=== PATIENT | female | born 1955 | race Caucasian/White ===

== ENCOUNTER 2017-06-28 08:03 | Day surgery (SDC) | payer OTHER ==
[~2017-06-28 08:03] MED LIST: Lactated Ringers 1,000 ML IV SCH; Lidocaine 1%/Sod Bicarbonate in NS 8.4% 1 ML Syringe PRN; Sodium Chloride 0.9% 10 ML Syringe FLUSH PRN
[2017-06-28] MEDS ORDERED: Albuterol 0.083% 2.5 MG/3 ML Neb Soln NEB ONE (09:01)
--- NOTE | 2017-06-28 09:02 | PCM.PREANE ---
Preanesthetic Assessment - Anesthesia/Transfusion/Family Hx Anesthesia History: Prior Anesthesia Without Reaction Family History of Anesthesia Reaction: No Transfusion History: No Prior Transfusion(s) - Review of Systems General: No Symptoms Pulmonary: No Symptoms Cardiovascular: No Symptoms Gastrointestinal: No Symptoms Neurological: No Symptoms - Physical Assessment NPO Status Date: 06/27/17 (pill with sip of water this am) NPO Status Time: 17:30 O2 Sat by Pulse Oximetry: 97 Respiratory Rate: 20 Vital Signs: Last Vital Signs Temp 99.0 F 06/28/17 08:10 Pulse 117 H 06/28/17 08:10 Resp 20 06/28/17 08:10 BP 137/94 H 06/28/17 08:10 Pulse Ox 97 06/28/17 08:10 Height: 5 ft 9 in Weight: 67.585 kg ASA Class: 2 Mental Status: Alert & Oriented x3 Airway Class: Mallampati = 1 Dentition: Reports: Normal Dentition Thyro-Mental Finger Breadths: 3 Mouth Opening Finger Breadths: 3 ROM/Head Extension: Full Lungs: Clear to Auscultation, Normal Respiratory Effort Cardiovascular: Regular Rate, Regular Rhythm - Allergies Allergies/Adverse Reactions: Allergies Allergy/AdvReac Type Severity Reaction Status Date / Time nortriptyline Allergy Cannot Verified 06/27/17 13:46 Remember Sulfa (Sulfonamide Allergy Cannot Verified 06/27/17 13:46 Antibiotics) Remember - Blood Blood Available: No - Acknowledgements Anesthesia Type Planned: General Anesthesia Pt an Appropriate Candidate for the Planned Anesthesia: Yes Alternatives and Risks of Anesthesia Discussed w Pt/Guardian: Yes Pt/Guardian Understands and Agrees with Anesthesia Plan: Yes PreAnesthesia Questionnaire HEENT History: Reports: Sinusitis Cardiovascular History: Reports: Arrhythmia, High Cholesterol, Hypertension ( denies), Other (See Below) Other Cardiovascular History: SVT Respiratory History: Reports: COPD Gastrointestinal History: Reports: GERD, Hemorrhoids, Other (See Below) Other Gastrointestinal History: perianal cyst Genitourinary History: Reports: Urinary Incontinence OBIEE OBIA 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: Reports: Other (See Below) Other OB/BYN History: bladder sling, atrohic vaginitis, stress urinary incontinence, urgency, cystocle and rectocele, cystocele and rectocele repair Musculoskeletal History: Reports: Back Pain, Chronic, Other (See Below) Other Musculoskeletal History: right foot mass Neurological History: Reports: None Psychiatric History: Reports: Anxiety Endocrine/Metabolic History: Reports: None Hematologic History: Reports: Anemia, Iron Deficiency, Other (See Below) Other Hematologic History: leukocytosis Immunologic History: Reports: None Oncologic (Cancer) History: Reports: None Dermatologic History: Reports: Other (See Below) Other Dermatologic History: actinic keratosis, right foot abcess - Past Surgical History HEENT Surgical History: Reports: None Cardiovascular Surgical History: Reports: None Respiratory Surgical History: Reports: None GI Surgical History: Reports: Appendectomy, Cholecystectomy, Colonoscopy Female Surgical History: Reports: Hysterectomy Endocrine Surgical History: Reports: None Neurological Surgical History: Reports: None Musculoskeletal Surgical History: Reports: Other (See Below) Other Musculoskeletal Surgeries/Procedures:: L5S1 fusion, right great toe surgery Oncologic Surgical History: Reports: None - SUBSTANCE USE Smoking Status *Q: Former Smoker (quit 2010) Second Hand Smoke Exposure: Yes Days Per Week of Alcohol Use: 0 Recreational Drug Use History: No - HOME MEDS Home Medications: Home Meds Albuterol [Proair HFA] 2 puff INH Q12H PRN 06/27/17 [History] ClonazePAM [KlonoPIN] 0.5 mg PO BID PRN 06/27/17 [History] Cyclobenzaprine [Flexeril] 10 mg PO BID PRN 06/27/17 [History] Diltiazem HCl [Diltiazem 24Hr ER] 240 mg PO DAILY 06/27/17 [History] Esomeprazole [NexIUM] 40 mg PO BID 06/27/17 [History] Estrogens, Conjugated [Premarin] 0.625 mg PO DAILY 06/27/17 [History] Ezetimibe [Ezetimibe] 10 mg PO DAILY 06/27/17 [History] Fluticasone Propionate [Flonase] 1 spray NASBOTH DAILY 06/27/17 [History] Fluticasone/Salmeterol [Advair 500-50] 1 puff INH BID 06/27/17 [History] Gabapentin [Neurontin] 300 mg PO BEDTIME 06/27/17 [History] Meloxicam [Meloxicam] 15 mg PO DAILY 06/27/17 [History] Montelukast [Singulair] 10 mg PO DAILY 06/27/17 [History] Rosuvastatin Calcium [Rosuvastatin Calcium] 10 mg PO DAILY 06/27/17 [History] Tiotropium [Spiriva Handihaler] 1 puff INH DAILY 06/27/17 [History] Ubidecarenone [Coq-10] 100 mg PO DAILY 06/27/17 [History] - CURRENT (IN HOUSE) MEDS Current Meds: Current Medications Lactated Ringer's (Ringers, Lactated) 1,000 mls @ 125 mls/hr IV ASDIRECTED STANLEY Stop: 06/28/17 23:00 Last Admin: 06/28/17 08:25 Dose: 125 mls/hr Lidocaine/Sodium Bicarbonate (Buffered Lidocaine 1% In Ns 8.4%) 0.25 ml .XX ONETIME PRN PRN Reason: Prior to IV Start Stop: 06/28/17 18:00 Last Admin: 06/28/17 08:24 Dose: 0.25 ml Sodium Chloride (Saline Flush) 10 ml FLUSH ASDIRECTED PRN PRN Reason: Keep Vein Open Stop: 06/28/17 18:00
[2017-06-28] MEDS ORDERED: Lidocaine 1% with EPINEPHrine 1:100,000 20 ML MDV ONE (09:07)
[2017-06-28] MEDS ORDERED: Sodium Chloride 0.9% 50 ML SDV ONE (09:07)
[2017-06-28] MEDS ORDERED: fentaNYL 250 MCG/5 ML SDV ONE (09:32)
[2017-06-28] MEDS ORDERED: Propofol 200 MG/20 ML SDV ONE (09:32)
[2017-06-28] MEDS ORDERED: Lidocaine 1% 4 ML ONE (09:32)
[2017-06-28] MEDS ORDERED: Ondansetron 4 MG/2 ML SDV ONE (09:32)
[2017-06-28] MEDS ORDERED: Midazolam 1 MG/ML 2 ML SDV ONE (09:32)
[2017-06-28] MEDS ORDERED: Rocuronium 50 MG/5 ML Vial ONE (09:42)
[2017-06-28] MEDS ORDERED: ceFAZolin 1 GM Vial ONE (09:47)
[2017-06-28] MEDS ORDERED: HYDROmorphone 1 MG/ML Syringe ONE (10:18)
[2017-06-28] MEDS ORDERED: fentaNYL 100 MCG/2 ML SDV IVPUSH PRN (10:20)
[2017-06-28] MEDS ORDERED: HYDROmorphone 0.5 MG/0.5 ML Syringe IVPUSH PRN (10:20)
[2017-06-28] MEDS ORDERED: Haloperidol Lactate 5 MG/ML SDV IVPUSH PRN (10:20)
[2017-06-28] MEDS ORDERED: Dexamethasone 4 MG/ML 5 ML MDV ONE (10:42)
[2017-06-28] MEDS ORDERED: Ketorolac 30 MG/ML SDV ONE (10:42)
[2017-06-28] MEDS ORDERED: Lactated Ringers 1,000 ML ONE (10:42)
[2017-06-28] MEDS ORDERED: Neostigmine Methylsulfate 1 MG/ML 5 ML Syringe ONE (10:44)
--- NOTE | 2017-06-28 10:47 | PCM.OPNOTE ---
- General Post-Op/Procedure Note Date of Surgery/Procedure: 06/28/17 Operative Procedure(s): Anterior colporrhaphy 37044 Pre Op Diagnosis: Cystocele midline, stress urinary incontinence female Post-Op Diagnosis: Same Anesthesia Technique: General ET Tube Primary Surgeon: Azar Aviles Secondary Surgeon: Paul Aggarwal Anesthesia Provider: Phyllis Hahn Ear Muff Assembler: Rishi Dumont (PAS) Reason Ear Muff Assembler Was Necessary: Retraction, decrease comorbidity and co-mortality, patient safety Role of Ear Muff Assembler: Retraction, decrease comorbidity and co-mortality, patient safety Fluid Replacement, Intraop: 1,000 Output, Urine Amount: 275 EBL in mLs: 10 Drain/Tube Comments:: None Complications: None Condition: Good Free Text/Narrative:: Patient was transported to operating room #2 and placed under general anesthesia with endotracheal intubation. SCDs in place and functioning prior surgery. Ancef 2 g given intravenously prior surgery. Patient prepared and draped in a sterile fashion. Timeout performed confirming name, date of and procedure is anterior possible posterior colporrhaphy (only anterior colporrhaphy required) the apex of vagina grasped with 2 Allis clamps and additional Allis clamps placed at the cystoscopy urethral angle to allow orientation during surgery and provide additional retraction. A T-incision was made at the apex of the vagina and injecting 7 mL of 0.5% lidocaine with epinephrine beneath the vaginal mucosa. Undermining with Metzenbaum scissors and incising to the cystoscopy urethral angle the vaginal mucosa was grasped bilaterally with Allis clamps and applying traction dissection was performed to reduce the cystocele. Plication sutures of 0 Monocryl were placed beginning at the urethrovesical angle and one distally and proceeding posteriorly the plication sutures of 0 Monocryl were placed and reducing the cystocele. The redundant vaginal mucosa was excised. The vaginal causes was approximated with 0 Monocryl running suture. Examination under anesthesia had revealed good support posteriorly and no posterior repair was required. Sponge needle pack asthma sharp count correct 2 120 mL of saline instilled into the bladder to assist in post operative voiding patient transported postanesthesia care unit in satisfactory condition. I talked with her concerning the surgery and all questions answered voiced satisfaction.
--- NOTE | 2017-06-28 10:49 | PCM.POSTAN ---
POST ANESTHESIA ASSESSMENT - MENTAL STATUS Mental Status: Alert, Oriented - VITAL SIGNS Pulse Rate: 124 SaO2: 98 Resp Rate: 15 Blood Pressure: 137/73 Temperature: 37.3 C - RESPIRATORY Respiratory Status: Respiratory Rate WNL, Airway Patent, O2 Saturation Stable, Supplemental Oxygen - CARDIOVASCULAR CV Status: Pulse Rate WNL, Blood Pressure Stable - GASTROINTESTINAL GI Status: No Symptoms - PAIN Pain Score: 0 - POST OP HYDRATION Hydration Status: Adequate & Stable
[2017-06-28] MEDS ORDERED: Acetaminophen/oxyCODONE 325-5 MG Tab PO ONE (14:06)
[2017-06-28 16:55] VITALS: BP 142/78
--- NOTE | 2017-06-29 11:18 | PCM48HPAN ---
Post Anesthesia Note - EVALUATION WITHIN 48HRS OF ANESTHETIC Vital Signs in Normal Range: Yes Patient Participated in Evaluation: Yes Respiratory Function Stable: Yes Airway Patent: Yes Cardiovascular Function Stable: Yes Hydration Status Stable: Yes Pain Control Satisfactory: Yes Nausea and Vomiting Control Satisfactory: Yes Mental Status Recovered: Yes
== END 2017-06-28 16:20 | disposition home or self-care (01) ==
LOC: JD.SDS 08:03 → MERGE 08:03 → JD.SDS 16:20
PROVIDERS: ATTEND Obstetrics & Gynecology
DX: N81.11 Cystocele, midline (principal); N39.3 Stress incontinence (female) (male); L57.0 Actinic keratosis; F41.9 Anxiety disorder, unspecified; N95.2 Postmenopausal atrophic vaginitis; M89.29 Other disorders of bone development and growth, multiple sites; M54.10 Radiculopathy, site unspecified; I10 Essential (primary) hypertension; J44.9 Chronic obstructive pulmonary disease, unspecified; J30.89 Other allergic rhinitis; K21.9 Gastro-esophageal reflux disease without esophagitis; E78.5 Hyperlipidemia, unspecified; D50.9 Iron deficiency anemia, unspecified; G25.81 Restless legs syndrome; J32.9 Chronic sinusitis, unspecified; R39.15 Urgency of urination; Z88.8 Allergy status to other drugs, medicaments and biological substances; Z88.2 Allergy status to sulfonamides; Z79.51 Long term (current) use of inhaled steroids; Z79.899 Other long term (current) drug therapy; Z90.49 Acquired absence of other specified parts of digestive tract; Z90.710 Acquired absence of both cervix and uterus; Z98.890 Other specified postprocedural states
CPT/HCPCS: 36415; 57240; 86850; 86900; 86901; 93005; 94640; A9270; J0690; J1100; J1170; J1885; J2250; J2405; J2710; J3010; J7120; 00942; J2704

== ENCOUNTER 2017-09-07 11:08 | Day surgery (SDC) | payer OTHER ==
[~2017-09-07 11:08] MED LIST changes: +Lidocaine 1%/Sod Bicarbonate in NS 8.4% 1 ML Syringe IDERM PRN; -Lidocaine 1%/Sod Bicarbonate in NS 8.4% 1 ML Syringe PRN
[2017-09-07] MEDS ORDERED: Propofol 200 MG/20 ML SDV ONE (12:31)
[2017-09-07] MEDS ORDERED: Midazolam 1 MG/ML 2 ML SDV ONE (12:31)
[2017-09-07] MEDS ORDERED: fentaNYL 100 MCG/2 ML SDV ONE ×2 (12:31→13:17)
[2017-09-07] MEDS ORDERED: Lidocaine 1% 4 ML ONE (12:33)
--- NOTE | 2017-09-07 12:44 | PCM.PREANE ---
Preanesthetic Assessment - Procedure Proposed Procedure: Anoscopy with rubber band ligation - Anesthesia/Transfusion/Family Hx Anesthesia History: Prior Anesthesia Without Reaction Family History of Anesthesia Reaction: No Transfusion History: No Prior Transfusion(s) - Review of Systems General: No Symptoms Pulmonary: Other (COPD) Cardiovascular: Other (SVT, HTN ) Gastrointestinal: Other (GERD ) Neurological: No Symptoms Other: Reports: Easy Bruising, Anxiety - Physical Assessment NPO Status Date: 09/06/17 NPO Status Time: 17:30 Pulse: 103 O2 Sat by Pulse Oximetry: 97 Respiratory Rate: 20 Blood Pressure: 143/73 Temperature: 36.8 C Height: 1.75 m Weight: 67.132 kg ASA Class: 2 Mental Status: Alert & Oriented x3 Airway Class: Mallampati = 3 Dentition: Reports: Normal Dentition Thyro-Mental Finger Breadths: 3 Mouth Opening Finger Breadths: 3 ROM/Head Extension: Full Lungs: Clear to Auscultation, Normal Respiratory Effort Cardiovascular: Regular Rate, Regular Rhythm - Allergies Allergies/Adverse Reactions: Allergies Allergy/AdvReac Type Severity Reaction Status Date / Time nortriptyline Allergy Rash Verified 09/06/17 13:46 Sulfa (Sulfonamide Allergy Cannot Verified 09/06/17 13:46 Antibiotics) Remember sulfanilamide Allergy Rash Verified 09/06/17 13:46 - Blood Blood Available: No Product(s) Available: None - Anesthesia Plan Pre-Op Medication Ordered: None - Acknowledgements Anesthesia Type Planned: MAC Pt an Appropriate Candidate for the Planned Anesthesia: Yes Alternatives and Risks of Anesthesia Discussed w Pt/Guardian: Yes Pt/Guardian Understands and Agrees with Anesthesia Plan: Yes PreAnesthesia Questionnaire HEENT History: Reports: Sinusitis Other HEENT History: reading glasses, chalazion L eye Cardiovascular History: Reports: Arrhythmia, High Cholesterol, Hypertension, Other (See Below) Other Cardiovascular History: SVT Respiratory History: Reports: COPD, Other (See Below) Other Respiratory History: emphysema Gastrointestinal History: Reports: Chronic Constipation, GERD, Hemorrhoids, Other (See Below) Other Gastrointestinal History: perianal cyst Genitourinary History: Reports: Other (See Below), Urinary Incontinence Other Genitourinary History: stress urinary incontinence, L kidney lesion INSPECTOR REPAIRER History: Reports: Other (See Below) Other OB/BYN History: bladder sling, atrohic vaginitis, stress urinary incontinence, urgency, cystocle and rectocele, cystocele and rectocele repair Musculoskeletal History: Reports: Back Pain, Chronic, Gout, Other (See Below) Other Musculoskeletal History: right foot mass Neurological History: Reports: None Psychiatric History: Reports: Anxiety Endocrine/Metabolic History: Reports: None Hematologic History: Reports: Anemia, Iron Deficiency, Other (See Below) Other Hematologic History: leukocytosis Immunologic History: Reports: None Oncologic (Cancer) History: Reports: None, Other (See Below) Other Oncologic History: pre-cancer hyperplasia of bilateral breasts Dermatologic History: Reports: Other (See Below) Other Dermatologic History: actinic keratosis, right foot abcess - Past Surgical History HEENT Surgical History: Reports: Cataract Surgery, Tonsillectomy Cardiovascular Surgical History: Reports: None Respiratory Surgical History: Reports: None GI Surgical History: Reports: Appendectomy, Cholecystectomy, Colonoscopy, Other (See Below) Other GI Surgeries/Procedures: candidiasis of esophogus, tubular adenoma of colon, rectal bleeding Female Surgical History: Reports: Hysterectomy Male Surgical History: Reports: None Endocrine Surgical History: Reports: None Neurological Surgical History: Reports: None Musculoskeletal Surgical History: Reports: Other (See Below) Other Musculoskeletal Surgeries/Procedures:: L5S1 fusion, right great toe surgery Oncologic Surgical History: Reports: Biopsy of Breast, None - SUBSTANCE USE Smoking Status *Q: Former Smoker Tobacco Use Within Last Twelve Months: Cigarettes Second Hand Smoke Exposure: Yes Days Per Week of Alcohol Use: 0 Recreational Drug Use History: No - HOME MEDS Home Medications: Home Meds ClonazePAM [KlonoPIN] 0.5 mg PO TID PRN 01/25/15 [History] Diltiazem HCl [Diltiazem 24Hr ER] 240 mg PO DAILY 01/25/15 [History] Esomeprazole [NexIUM] 40 mg PO BID 01/25/15 [History] Estrogens, Conjugated [Premarin] 0.625 mg PO DAILY 01/25/15 [History] Montelukast [Singulair] 10 mg PO BEDTIME 01/25/15 [History] Rosuvastatin [Crestor] 10 mg PO BEDTIME 01/25/15 [History] Ubidecarenone [Coq-10] 300 mg PO BEDTIME 04/22/15 [History] Ferrous Sulfate [Iron] 325 mg PO DAILY 09/26/15 [History] Mirabegron [Myrbetriq] 25 mg PO DAILY 09/26/15 [History] Albuterol [Proair HFA] 2 puff INH Q12H PRN 06/27/17 [History] Ezetimibe 10 mg PO DAILY 06/27/17 [History] Fluticasone Propionate [Flonase] 1 spray NASBOTH DAILY 06/27/17 [History] Fluticasone/Salmeterol [Advair 500-50] 1 puff INH BID 06/27/17 [History] Gabapentin [Neurontin] 300 mg PO BEDTIME 06/27/17 [History] Meloxicam 15 mg PO DAILY 06/27/17 [History] Tiotropium [Spiriva Handihaler] 1 puff INH DAILY 06/27/17 [History] Cyclobenzaprine [Flexeril] 10 mg PO Q8H PRN 09/06/17 [History] - CURRENT (IN HOUSE) MEDS Current Meds: Current Medications Lactated Ringer's (Ringers, Lactated) 1,000 mls @ 125 mls/hr IV ASDIRECTED STANLEY Stop: 09/07/17 23:00 Last Admin: 09/07/17 12:25 Dose: 125 mls/hr Lidocaine/Sodium Bicarbonate (Buffered Lidocaine 1% In Ns 8.4%) 0.25 ml IDERM ONETIME PRN PRN Reason: Prior to IV Start Stop: 09/07/17 18:00 Sodium Chloride (Saline Flush) 10 ml FLUSH ASDIRECTED PRN PRN Reason: Keep Vein Open Stop: 09/07/17 18:00 Discontinued Medications Fentanyl (Sublimaze) Confirm Administered Dose 100 mcg .ROUTE .STK-MED ONE Stop: 09/07/17 12:32 Lidocaine HCl (Xylocaine-Mpf 1%) Confirm Administered Dose 4 mls @ as directed .ROUTE .STK-MED ONE Stop: 09/07/17 12:34 Midazolam HCl (Versed 1 Mg/Ml) Confirm Administered Dose 2 mg .ROUTE .STK-MED ONE Stop: 09/07/17 12:32 Propofol (Diprivan 20 Ml) Confirm Administered Dose 200 mg .ROUTE .STK-MED ONE Stop: 09/07/17 12:32
--- NOTE | 2017-09-07 13:24 | PCM.OPNOTE ---
- General Post-Op/Procedure Note Date of Surgery/Procedure: 09/07/17 Operative Procedure(s): 1. Anoscopy. 2. 3 column internal hemorrhoid rubber band ligation using the short shot Findings: Prominent 3 column internal hemorrhoids Pre Op Diagnosis: Bleeding internal hemorrhoids grade 2 Post-Op Diagnosis: Same Anesthesia Technique: MAC, Moderate Sedation Primary Surgeon: Gera Perdue Pathology: None EBL in mLs: 0 Complications: None Condition: Good Free Text/Narrative:: After adequate IV sedation and analgesia was obtained with monitoring the patient was placed in the prone check position with her buttocks taped. Perianal inspection revealed a slightly prolapsing internal hemorrhoids. Digital rectal examination was unremarkable for mass lesions. Anoscopy revealed prominent left lateral right anterior and right posterior columns. The short shot was then applied above the anoderm within each column 3. Patient tolerated the procedure well.
[2017-09-07] MEDS ORDERED: fentaNYL 100 MCG/2 ML SDV IVPUSH PRN (13:26)
[2017-09-07] MEDS ORDERED: Ketorolac 30 MG/ML SDV IVPUSH ONE (13:26)
[2017-09-07 15:04] VITALS: BP 135/70
== END 2017-09-07 14:05 | disposition home or self-care (01) ==
LOC: JD.SDS 11:08
PROVIDERS: ATTEND Surgery
DX: K64.1 Second degree hemorrhoids (principal); F41.9 Anxiety disorder, unspecified; I10 Essential (primary) hypertension; J44.9 Chronic obstructive pulmonary disease, unspecified; E78.5 Hyperlipidemia, unspecified; K21.9 Gastro-esophageal reflux disease without esophagitis; J30.89 Other allergic rhinitis; Z88.2 Allergy status to sulfonamides; Z88.8 Allergy status to other drugs, medicaments and biological substances; Z79.899 Other long term (current) drug therapy; Z87.891 Personal history of nicotine dependence
CPT/HCPCS: 46221; J1885; J2250; J3010; J7120; 00400; J2001; J2704

== ENCOUNTER 2018-10-02 14:54 | Emergency (ER) | payer OTHER ==
--- NOTE | 2018-10-02 15:42 | CR ---
Chest: Two views of the chest were obtained. Comparison: Previous chest x-ray of 03/15/18. Small bilateral pleural effusions are seen. Heart size at the upper limits of normal. Pulmonary vessels are felt to be slightly congested. Bony structures are unremarkable. Electrostimulating device seen within the thoracic spine. Impression: 1. Findings suspicious for mild CHF. Other incidental findings. Diagnostic code #3
[2018-10-02] MEDS ORDERED: Sodium Chloride/Potassium Chloride Tab PO STA (16:04)
[2018-10-02] MEDS ORDERED: Sodium Chloride 3% 500 ML IV SCH (16:45)
--- NOTE | 2018-10-02 17:10 | EDM.PDOC ---
ED HPI GENERAL MEDICAL PROBLEM - General Chief Complaint: Cardiovascular Problem Stated Complaint: SOB/HIGH BP Time Seen by Provider: 10/02/18 15:00 Source of Information: Reports: Patient History Limitations: Reports: No Limitations - History of Present Illness INITIAL COMMENTS - FREE TEXT/NARRATIVE: 63y/o female presents to ER with cc SOB. She reports she has been SOB for the past 4 months. She has seen her PCP and is awaiting a appointment with [facility]. She reports she has had increased SOB over the past 3 days. She has gained 9 pounds in 9 days. She reports her sodium level has been low 128, and she had a 24 hour urine done recently. She denies fever or chills, chest pain or back pain. She reports she can't bend over without becoming more SOB. She states she feels her abdomen is swollen. She denies diarrhea or constipation. She does admit to having a abnormal colonoscopy in 2014 and hasn' t followed up yet. She does have a history of A-Fib and it is well controlled with Metoprolol. She currently is in no distress and her saturation is 98% on room air. Onset Date: 09/29/18 Onset Time: 12:00 Duration: Getting Worse Location: Reports: Chest, Abdomen Severity: Mild Improves with: Reports: None Worsens with: Reports: Breathing Associated Symptoms: Reports: Shortness of Breath. Denies: Chest Pain, Cough, Diaphoresis, Fever/Chills, Nausea/Vomiting, Weakness - Related Data Allergies Allergy/AdvReac Type Severity Reaction Status Date / Time nortriptyline Allergy Rash Verified 10/02/18 15:02 Sulfa (Sulfonamide Allergy Cannot Verified 10/02/18 15:02 Antibiotics) Remember sulfanilamide Allergy Rash Verified 10/02/18 15:02 Home Meds: Home Meds Esomeprazole [NexIUM] 40 mg PO BID 01/25/15 [History] Estrogens, Conjugated [Premarin] 0.625 mg PO DAILY 01/25/15 [History] Montelukast [Singulair] 10 mg PO BEDTIME 01/25/15 [History] Rosuvastatin [Crestor] 10 mg PO BEDTIME 01/25/15 [History] Ubidecarenone [Coq-10] 300 mg PO BEDTIME 04/22/15 [History] Ferrous Sulfate [Iron] 325 mg PO DAILY 09/26/15 [History] Albuterol [Proair HFA] 2 puff INH Q12H PRN 06/27/17 [History] Ezetimibe 10 mg PO DAILY 06/27/17 [History] Fluticasone Propionate [Flonase] 1 spray NASBOTH DAILY 06/27/17 [History] Fluticasone/Salmeterol [Advair 500-50] 1 puff INH BID 06/27/17 [History] Gabapentin [Neurontin] 300 mg PO BID 06/27/17 [History] Tiotropium [Spiriva Handihaler] 1 puff INH DAILY 06/27/17 [History] Losartan [Cozaar] 50 mg PO DAILY 10/02/18 [History] Metoprolol Succinate [Toprol XL 100mg] 100 mg PO BID 10/02/18 [History] Rivaroxaban [Xarelto] 20 mg PO 10/02/18 [History] Past Medical History HEENT History: Reports: Sinusitis Other HEENT History: reading glasses, chalazion L eye Cardiovascular History: Reports: Arrhythmia, High Cholesterol, Hypertension, Other (See Below) Other Cardiovascular History: SVT Respiratory History: Reports: COPD, Other (See Below) Other Respiratory History: emphysema Gastrointestinal History: Reports: Chronic Constipation, GERD, Hemorrhoids, Other (See Below) Other Gastrointestinal History: perianal cyst Genitourinary History: Reports: Other (See Below), Urinary Incontinence Other Genitourinary History: stress urinary incontinence, L kidney lesion ELECTRONIC TECH History: Reports: Other (See Below) Other ELECTRONIC TECH History: bladder sling, atrohic vaginitis, stress urinary incontinence, urgency, cystocle and rectocele, cystocele and rectocele repair Musculoskeletal History: Reports: Back Pain, Chronic, Gout, Other (See Below) Other Musculoskeletal History: right foot mass Neurological History: Reports: None Psychiatric History: Reports: Anxiety Endocrine/Metabolic History: Reports: None Hematologic History: Reports: Anemia, Iron Deficiency, Other (See Below) Other Hematologic History: leukocytosis Immunologic History: Reports: None Oncologic (Cancer) History: Reports: None, Other (See Below) Other Oncologic History: pre-cancer hyperplasia of bilateral breasts Dermatologic History: Reports: Other (See Below) Other Dermatologic History: actinic keratosis, right foot abcess - Past Surgical History HEENT Surgical History: Reports: Cataract Surgery, Tonsillectomy Cardiovascular Surgical History: Reports: None Respiratory Surgical History: Reports: None GI Surgical History: Reports: Appendectomy, Cholecystectomy, Colonoscopy, Other (See Below) Other GI Surgeries/Procedures: candidiasis of esophogus, tubular adenoma of colon, rectal bleeding Female Surgical History: Reports: Hysterectomy Endocrine Surgical History: Reports: None Neurological Surgical History: Reports: None Musculoskeletal Surgical History: Reports: Other (See Below) Other Musculoskeletal Surgeries/Procedures:: L5S1 fusion, right great toe surgery Oncologic Surgical History: Reports: Biopsy of Breast, None Social & Family History - Tobacco Use Smoking Status *Q: Never Smoker - Caffeine Use Caffeine Use: Reports: Coffee - Recreational Drug Use Recreational Drug Use: No ED ROS GENERAL - Review of Systems Review Of Systems: See Below Constitutional: Reports: Weight Gain, Other (9 lbs in 9 days). Denies: Fever, Chills HEENT: Reports: Glasses Respiratory: Reports: Shortness of Breath Cardiovascular: Reports: Dyspnea on Exertion, Edema, Orthopnea. Denies: Chest Pain, Palpitations, Syncope Endocrine: Reports: Fatigue GI/Abdominal: Reports: Decreased Appetite, Other (distended abdomin). Denies: Constipation, Diarrhea, Vomiting : Reports: No Symptoms Musculoskeletal: Denies: Neck Pain, Back Pain Skin: Reports: No Symptoms Neurological: Reports: No Symptoms Psychiatric: Reports: No Symptoms Hematologic/Lymphatic: Reports: No Symptoms Immunologic: Reports: No Symptoms ED EXAM, GENERAL - Physical Exam Exam: See Below Exam Limited By: Respiratory Distress General Appearance: Alert, No Apparent Distress Ears: Normal External Exam, Normal Canal, Hearing Grossly Normal, Normal TMs Nose: Normal Inspection, Normal Mucosa, No Blood Throat/Mouth: Normal Inspection, Normal Lips, Normal Teeth, Normal Gums, Normal Oropharynx, Normal Voice, No Airway Compromise, Other (marvel on posterior oral pharyx) Head: Atraumatic, Normocephalic Neck: Normal Inspection, Supple, Non-Tender, Full Range of Motion Respiratory/Chest: No Respiratory Distress, No Accessory Muscle Use, Chest Non- Tender, Decreased Breath Sounds. No: Respiratory Distress Cardiovascular: Normal Peripheral Pulses, Regular Rate, Rhythm, No Gallop, No JVD, No Murmur, No Rub, Other (+ 1 perpheral edema) GI/Abdominal: Normal Bowel Sounds, Soft, Non-Tender, No Organomegaly, No Abnormal Bruit, No Mass, Pelvis Stable, Distended Back Exam: Normal Inspection, Full Range of Motion Extremities: Normal Inspection, Normal Range of Motion, Non-Tender, Normal Capillary Refill, Pedal Edema Neurological: Alert, Oriented, CN II-XII Intact, Normal Cognition, Normal Gait Psychiatric: Normal Affect, Normal Mood Skin Exam: Warm, Dry, Intact, Normal Color, No Rash Lymphatic: No Adenopathy EKG INTERPRETATION EKG Date: 10/02/18 Time: 15:45 Rhythm: NSR Rate (Beats/Min): 78 Course - Vital Signs Last Recorded V/S: Last Vital Signs Temp 97.2 F 10/02/18 17:35 Pulse 88 10/02/18 17:35 Resp 18 10/02/18 17:35 BP 178/93 H 10/02/18 17:35 Pulse Ox 98 10/02/18 17:35 - Orders/Labs/Meds Orders: Active Orders 24 hr Category Date Time Status EKG Documentation Completion [RC] STAT Care 10/02/18 15:02 Active CULTURE STREP A CONFIRMATION [RM] Stat Lab 10/02/18 16:30 Results PRO B-TYPE NATRIUR PEPT,BNPPRO [CHEM] Stat Lab 10/02/18 15:13 Received STREP SCRN A RAPID W CULT CONF [RM] Stat Lab 10/02/18 16:30 Results URINALYSIS W/O MICROSCOPIC [UA W/O MICROSCOPIC] [URIN] Lab 10/02/18 17:35 Received Stat Sodium Chloride 3% 500 ml Med 10/02/18 16:45 Active IV ASDIRECTED Medication Orders Sodium Chloride (Sodium Chloride 3%) 500 mls @ 100 mls/hr IV ASDIRECTED STANLEY Last Admin: 10/02/18 17:14 Dose: 100 mls/hr Labs: Laboratory Tests 10/02/18 10/02/18 10/02/18 Range/Units 15:13 15:15 15:15 WBC 14.73 H (3.98-10.04) K/mm3 RBC 4.05 (3.98-5.22) M/mm3 Hgb 13.0 (11.2-15.7) gm/L Hct 38.4 (34.1-44.9) % MCV 94.8 (79.4-94.8) fl MCH 32.1 (25.6-32.2) pg MCHC 33.9 (32.2-35.5) g/dl RDW Std Deviation 45.1 (36.4-46.3) fL Plt Count 338 (182-369) K/mm3 MPV 8.7 L (9.4-12.3) fl Neut % (Auto) 71.7 H (34.0-71.1) % Lymph % (Auto) 18.5 L (19.3-51.7) % Dubois % (Auto) 8.8 (4.7-12.5) % Eos % (Auto) 0.6 L (0.7-5.8) Baso % (Auto) 0.1 (0.1-1.2) % Neut # (Auto) 10.55 H (1.56-6.13) K/mm3 Lymph # (Auto) 2.73 (1.18-3.74) K/mm3 Dubois # (Auto) 1.30 H (0.24-0.36) K/mm3 Eos # (Auto) 0.09 (0.04-0.36) K/mm3 Baso # (Auto) 0.02 (0.01-0.08) K/mm3 Sodium 119 L (136-145) mEq/L Potassium 4.6 (3.5-5.1) mEq/L Chloride 87 L (98-107) mEq/L Carbon Dioxide 25 (21-32) mEq/L Anion Gap 11.6 (5-15) BUN 9 (7-18) mg/dL Creatinine 0.7 (0.55-1.02) mg/dL Est Cr Clr Drug Dosing 88.20 mL/min Estimated GFR (MDRD) > 60 (>60) mL/min BUN/Creatinine Ratio 12.9 L (14-18) Glucose 111 (80-115) mg/dL Calcium 8.4 L (8.5-10.1) mg/dL Total Bilirubin 0.5 (0.2-1.0) mg/dL AST 52 H (15-37) U/L ALT 64 H (14-59) U/L Alkaline Phosphatase 129 H (46-116) U/L Troponin I < 0.017 (0.00-0.056) ng/mL Total Protein 6.6 (6.4-8.2) g/dl Albumin 3.3 L (3.4-5.0) g/dl Globulin 3.3 gm/dL Albumin/Globulin Ratio 1.0 (1-2) Meds: Medications Generic Name Dose Route Start Last Admin Trade Name Michelle PRN Reason Stop Dose Admin Sodium Chloride 500 mls @ 100 mls/hr 10/02/18 16:45 10/02/18 17:14 Sodium Chloride 3% IV 100 mls/hr ASDIRECTED STANLEY Administration Discontinued Medications Generic Name Dose Route Start Last Admin Trade Name Michelle PRN Reason Stop Dose Admin Oral Electrolytes 1 each 10/02/18 16:04 10/02/18 16:35 Thermotabs PO 10/02/18 16:05 1 each NOW STA Administration - Re-Assessments/Exams Free Text/Narrative Re-Assessment/Exam: 10/02/18 1600 63 y/o female presented to ER with cc SOB worsening over the past 3 days. Her chest x-ray revealed small bilateral pleural effusions. Pulmonary vessels are felt to be slightly congested. Findings suspicious for mild CHF. WBC 14.73 h & h 13.0/38.4 NA+ 119 k + 4.6 CHLORIDE 87 CO2 25 BUN 9 CREATINE 0.7 GLUCOSE 111. Previous 24 hour urine Urine osmolality 188 murine sodium concentration 36. EKG revealed NSR. Urinalysis pending. Troponin negative 0.017 strep negative. 10/02/[address] [facility] and Dr. Barragan accepted the patient for further evaluation and treatment of hyponatremia, and CHF. Started 3% saline at 100 cc/hr. Discussed transfer with patient and she is agreement. 10/02/18 17:35 Patient transferred via ambulance, she is stable at time of discharge. 10/02/18 17:36 Departure - Departure Time of Disposition: 17:14 Disposition: DC/Tfer to Acute Hospital 02 Reason for Transfer *Q: Primary PCI Indicated Condition: Good Clinical Impression: Hyponatremia with decreased serum osmolality CHF (congestive heart failure) Qualifiers: Heart failure type: unspecified Heart failure chronicity: acute Qualified Code( s): I50.9 - Heart failure, unspecified Referrals: Ayo Godwin PA [Primary Care Provider] - Forms: ED Department Discharge, ED Summary Discharge - My Orders Last 24 Hours: My Active Orders 10/02/18 15:02 EKG Documentation Completion [RC] STAT 04/29/19 15:13 PRO B-TYPE NATRIUR PEPT,BNPPRO [CHEM] Stat 10/02/18 16:30 CULTURE STREP A CONFIRMATION [RM] Stat STREP SCRN A RAPID W CULT CONF [RM] Stat 10/02/18 16:45 Sodium Chloride 3% 500 ml IV ASDIRECTED 10/02/18 17:35 URINALYSIS W/O MICROSCOPIC [UA W/O MICROSCOPIC] [URIN] Stat - Assessment/Plan Last 24 Hours: My Active Orders 10/02/18 15:02 EKG Documentation Completion [RC] STAT 10/02/18 15:13 PRO B-TYPE NATRIUR PEPT,BNPPRO [CHEM] Stat 10/02/18 16:30 CULTURE STREP A CONFIRMATION [RM] Stat STREP SCRN A RAPID W CULT CONF [RM] Stat 10/02/18 16:45 Sodium Chloride 3% 500 ml IV ASDIRECTED 10/02/18 17:35 URINALYSIS W/O MICROSCOPIC [UA W/O MICROSCOPIC] [URIN] Stat
[2018-10-02 17:43] VITALS: BP 178/93
== END 2018-10-02 17:40 ==
LOC: JD.ED 14:54
DX: I11.0 Hypertensive heart disease with heart failure (principal); I50.9 Heart failure, unspecified; J44.9 Chronic obstructive pulmonary disease, unspecified; D50.9 Iron deficiency anemia, unspecified; E87.1 Hypo-osmolality and hyponatremia; Z88.8 Allergy status to other drugs, medicaments and biological substances; Z88.2 Allergy status to sulfonamides; Z79.899 Other long term (current) drug therapy
CPT/HCPCS: 36415; 71046; 80053; 81003; 83880; 84484; 85025; 87081; 87430; 93005; 96365; 99285; A9270; J7040; 93010

== ENCOUNTER 2019-02-20 07:27 | Day surgery (SDC) | payer OTHER ==
[~2019-02-20 07:27] MED LIST changes: +Lidocaine 1% 6 ML ONE; +Propofol 200 MG/20 ML SDV ONE; +fentaNYL 100 MCG/2 ML SDV ONE
[2019-02-20] MEDS ORDERED: Albuterol 0.083% 2.5 MG/3 ML Neb Soln NEB SCH (08:10)
--- NOTE | 2019-02-20 08:36 | PCM.PREANE ---
Preanesthetic Assessment - Procedure Proposed Procedure: colonoscopy - Anesthesia/Transfusion/Family Hx Anesthesia History: Prior Anesthesia Without Reaction Family History of Anesthesia Reaction: No Transfusion History: No Prior Transfusion(s) - Review of Systems General: No Symptoms Pulmonary: No Symptoms Cardiovascular: No Symptoms Gastrointestinal: No Symptoms Neurological: No Symptoms Other: Reports: Thyroid Problems, Sinus Problem - Physical Assessment NPO Status Date: 02/20/19 (445 prep) NPO Status Time: 04:45 Vital Signs: Last Vital Signs Temp 97.7 F 02/20/19 07:45 Pulse 93 02/20/19 07:45 Resp 18 02/20/19 07:45 BP 161/72 H 02/20/19 07:45 Pulse Ox 95 02/20/19 08:06 Height: 5 ft 9 in Weight: 70.2 kg ASA Class: 2 Mental Status: Alert & Oriented x3 Airway Class: Mallampati = 2 Dentition: Reports: Normal Dentition Thyro-Mental Finger Breadths: 3 Mouth Opening Finger Breadths: 3 ROM/Head Extension: Full Lungs: Clear to Auscultation, Normal Respiratory Effort Cardiovascular: Regular Rate, Regular Rhythm - Allergies Allergies/Adverse Reactions: Allergies Allergy/AdvReac Type Severity Reaction Status Date / Time nortriptyline Allergy Rash Verified 02/20/19 08:16 Sulfa (Sulfonamide Allergy Rash Verified 02/20/19 08:16 Antibiotics) - Blood Blood Available: No - Anesthesia Plan Beta Mechelle: Metoprolol Med Last Dose Date: 02/20/19 Med Last Dose Time: 05:00 - Acknowledgements Anesthesia Type Planned: MAC Pt an Appropriate Candidate for the Planned Anesthesia: Yes Alternatives and Risks of Anesthesia Discussed w Pt/Guardian: Yes Pt/Guardian Understands and Agrees with Anesthesia Plan: Yes PreAnesthesia Questionnaire HEENT History: Reports: Sinusitis Other HEENT History: reading glasses, chalazion L eye Cardiovascular History: Reports: Arrhythmia, High Cholesterol, Hypertension, Other (See Below) Other Cardiovascular History: SVT Respiratory History: Reports: COPD, Other (See Below) Other Respiratory History: emphysema Gastrointestinal History: Reports: Chronic Constipation, GERD, Hemorrhoids, Other (See Below) Other Gastrointestinal History: perianal cyst Genitourinary History: Reports: Other (See Below), Urinary Incontinence Other Genitourinary History: stress urinary incontinence, L kidney lesion TRANSCRIPTER History: Reports: Other (See Below) Other OB/BYN History: bladder sling, atrohic vaginitis, stress urinary incontinence, urgency, cystocle and rectocele, cystocele and rectocele repair Musculoskeletal History: Reports: Back Pain, Chronic, Gout, Other (See Below) Other Musculoskeletal History: right foot mass Neurological History: Reports: None Endocrine/Metabolic History: Reports: None Hematologic History: Reports: Anemia, Iron Deficiency, Other (See Below) Other Hematologic History: leukocytosis Immunologic History: Reports: None Oncologic (Cancer) History: Reports: None, Other (See Below) Other Oncologic History: pre-cancer hyperplasia of bilateral breasts Dermatologic History: Reports: Other (See Below) Other Dermatologic History: actinic keratosis, right foot abcess - Past Surgical History HEENT Surgical History: Reports: Cataract Surgery, Tonsillectomy Cardiovascular Surgical History: Reports: None Respiratory Surgical History: Reports: None GI Surgical History: Reports: Appendectomy, Cholecystectomy, Colonoscopy, Other (See Below) Other GI Surgeries/Procedures: candidiasis of esophogus, tubular adenoma of colon, rectal bleeding Female Surgical History: Reports: Hysterectomy Endocrine Surgical History: Reports: None Neurological Surgical History: Reports: None Musculoskeletal Surgical History: Reports: Other (See Below) Other Musculoskeletal Surgeries/Procedures:: L5S1 fusion, right great toe surgery Oncologic Surgical History: Reports: Biopsy of Breast, None - SUBSTANCE USE Smoking Status *Q: Former Smoker (quit 2010) Tobacco Use Within Last Twelve Months: No Second Hand Smoke Exposure: Yes Days Per Week of Alcohol Use: 0 Recreational Drug Use History: No - HOME MEDS Home Medications: Home Meds Esomeprazole [NexIUM] 40 mg PO BID 01/25/15 [History] Estrogens, Conjugated [Premarin] 0.625 mg PO DAILY 01/25/15 [History] Montelukast [Singulair] 10 mg PO BEDTIME 01/25/15 [History] Rosuvastatin [Crestor] 10 mg PO BEDTIME 01/25/15 [History] Ubidecarenone [Coq-10] 300 mg PO BEDTIME 04/22/15 [History] Ferrous Sulfate [Iron] 325 mg PO DAILY 09/26/15 [History] Albuterol [Proair HFA] 2 puff INH Q12H PRN 06/27/17 [History] Ezetimibe 10 mg PO DAILY 06/27/17 [History] Fluticasone Propionate [Flonase] 1 spray NASBOTH DAILY PRN 06/27/17 [History] Fluticasone/Salmeterol [Advair 500-50] 1 puff INH BID 06/27/17 [History] Gabapentin [Neurontin] 300 mg PO BID 06/27/17 [History] Tiotropium [Spiriva Handihaler] 1 puff INH DAILY 06/27/17 [History] Losartan [Cozaar] 50 mg PO DAILY 10/02/18 [History] Metoprolol Succinate [Toprol XL 100mg] 100 mg PO BID 10/02/18 [History] Rivaroxaban [Xarelto] 20 mg PO DAILY 10/02/18 [History] Ca Carbonate/Vitamin D3/Vit K [Calcium + D Soft Chewable Tab] 1 tab PO DAILY [History] Calcitriol 0.25 mg PO DAILY 02/19/19 [History] Cetirizine HCl [Zyrtec] 10 mg PO DAILY PRN 02/19/19 [History] DULoxetine HCl [Cymbalta] 60 mg PO DAILY 02/19/19 [History] Diclofenac Sodium [Voltaren 1% Gel] 1 dose TOP QID 02/19/19 [History] Furosemide 40 mg PO DAILY 02/19/19 [History] Potassium Chloride 20 meq PO DAILY 02/19/19 [History] - CURRENT (IN HOUSE) MEDS Current Meds: Current Medications Albuterol (Proventil Neb Soln) 2.5 mg NEB ONETIME STANLEY Last Admin: 02/20/19 08:20 Dose: 2.5 mg Lactated Ringer's (Ringers, Lactated) 1,000 mls @ 125 mls/hr IV ASDIRECTED STANLEY Stop: 02/20/19 23:00 Last Admin: 02/20/19 08:05 Dose: 125 mls/hr Lidocaine/Sodium Bicarbonate (Buffered Lidocaine 1% In Ns 8.4%) 0.25 ml IDERM ONETIME PRN PRN Reason: Prior to IV Start Stop: 02/20/19 18:00 Last Admin: 02/20/19 08:05 Dose: 0.25 ml Sodium Chloride (Saline Flush) 10 ml FLUSH ASDIRECTED PRN PRN Reason: Keep Vein Open Stop: 02/20/19 18:00 Discontinued Medications Fentanyl (Sublimaze) Confirm Administered Dose 100 mcg .ROUTE .STK-MED ONE Stop: 02/20/19 07:22 Lidocaine HCl (Xylocaine-Mpf 1%) Confirm Administered Dose 6 mls @ as directed .ROUTE .STK-MED ONE Stop: 02/20/19 07:21 Propofol (Diprivan 20 Ml) Confirm Administered Dose 200 mg .ROUTE .STK-MED ONE Stop: 02/20/19 07:21
[2019-02-20] MEDS ORDERED: Ondansetron 4 MG/2 ML SDV IVPUSH PRN (09:26)
[2019-02-20] MEDS ORDERED: Propofol 200 MG/20 ML SDV ONE (09:30)
--- NOTE | 2019-02-20 10:08 | PCM48HPAN ---
Post Anesthesia Note - EVALUATION WITHIN 48HRS OF ANESTHETIC Vital Signs in Normal Range: Yes Patient Participated in Evaluation: Yes Respiratory Function Stable: Yes Airway Patent: Yes Cardiovascular Function Stable: Yes Hydration Status Stable: Yes Pain Control Satisfactory: Yes Nausea and Vomiting Control Satisfactory: Yes Mental Status Recovered: Yes Vital Signs: Last Vital Signs Temp 98.3 02/20/19 10:02 Pulse 89 02/20/19 10:02 Resp 20 02/20/19 10:02 BP 150/84 02/20/19 10:02 Pulse Ox 96 02/20/19 10:02
[2019-02-20 10:36] VITALS: BP 150/76; PULSE 96
--- NOTE | 2019-02-20 10:51 | OR ---
DATE OF OPERATION: 02/20/2019 SURGEON: Francisco J Tejeda MD PREOPERATIVE DIAGNOSIS: History of colon polyps. POSTOPERATIVE DIAGNOSIS: 1. History of colon polyps. 2. Diverticulosis. OPERATION PERFORMED: 1. Screening colonoscopy and polypectomy x7. 2. Snare polypectomy. ANESTHESIA: MAC. PATHOLOGY: 1. Ascending colon polyps x4. 2. Hepatic flexure polyp x1. 3. Transverse colon polyp x1. 4. Sigmoid colon polyp x1. DISPOSITION: Stable at the end of the procedure. BOWEL PREP: Suboptimal. ESTIMATED BLOOD LOSS: Minimal. COMPLICATIONS: None. INDICATION: The patient is a 63-year-old female who has been having colonoscopy every 3 years. Every time she has colonoscopy, she has more polyps removed. The patient is recommended to have a followup colonoscopy. She was fully informed of the major risks, benefits, and alternatives. The risks include, but are not limited to perforation of the colon, bleeding, the risks of anesthesia, and the possibility of further surgery. She gave informed consent of what was done. DESCRIPTION OF PROCEDURE: The patient was brought to the gastro suite and placed in the left lateral decubitus position. She was given monitored anesthesia. A digital rectal exam was performed. This was unremarkable. I introduced the colonoscope into the rectum with copious lubrication. I advanced the scope slowly, keeping the lumen in view at all times. With gentle forward pressure, I reached the cecum and documented the cecum photographically. I slowly investigated the mucosa of the colon from the cecum back to the anus in an exam lasting 18 minutes. I encountered multiple polyps along the way. Ascending colon polyp, I removed 4, diminutive polyps with biopsy forceps. Additional polyps were noted in the hepatic flexure, transverse colon, and sigmoid colon. All these were removed in their entirety with a biopsy forceps with the exception of the sigmoid colon polyp, which was removed with a snare. The polyp in the sigmoid colon was approximately 7 mm in greatest dimension and was easily removed with a snare polypectomy technique with electrocautery . The remainder of her exam was unremarkable. At the end of the procedure, the scope was withdrawn. She had a thorough careful examination lasting 18 minutes. PLAN: Based on my findings today, she will need another colonoscopy in 3 years. However, if this changes, my office will notify her. MMODAL /[id number]
== END 2019-02-20 10:30 | disposition home or self-care (01) ==
LOC: JD.SDS 07:27
PROVIDERS: ATTEND Surgery
DX: Z12.11 Encounter for screening for malignant neoplasm of colon (principal); K57.30 Diverticulosis of large intestine without perforation or abscess without bleeding; D12.2 Benign neoplasm of ascending colon; D12.3 Benign neoplasm of transverse colon; K63.5 Polyp of colon; K63.89 Other specified diseases of intestine; M19.90 Unspecified osteoarthritis, unspecified site; I50.9 Heart failure, unspecified; J44.9 Chronic obstructive pulmonary disease, unspecified; M10.9 Gout, unspecified; E78.00 Pure hypercholesterolemia, unspecified; Z86.010 Personal history of colon polyps; Z88.8 Allergy status to other drugs, medicaments and biological substances; Z88.2 Allergy status to sulfonamides; Z79.899 Other long term (current) drug therapy; Z87.891 Personal history of nicotine dependence
CPT/HCPCS: 45380; 45385; 94640; J2001; J2704; J3010; J7120; 00812

== ENCOUNTER 2020-03-13 12:53 | Emergency (ER) | payer OTHER ==
[2020-03-13] MEDS ORDERED: Ondansetron 4 MG/2 ML SDV IVPUSH ONE (13:08)
[2020-03-13] MEDS ORDERED: Sodium Chloride 0.9% 10 ML Syringe FLUSH PRN (13:08)
[2020-03-13] MEDS ORDERED: HYDROmorphone 1 MG/ML Syringe IVPUSH ONE (13:09)
[2020-03-13] MEDS ORDERED: Piperacillin/Tazobactam 4.5 GM in Sodium Chloride 0.9% 100 ML IV SCH ×2 (13:15→21:30)
--- NOTE | 2020-03-13 13:26 | EDM.PDOC ---
ED HPI GENERAL MEDICAL PROBLEM - General Chief Complaint: Abdominal Pain Stated Complaint: ABDOMINAL PAIN AND NAUSEA SENT BY CLINIC Time Seen by Provider: 03/13/20 12:59 Source of Information: Reports: Patient History Limitations: Reports: No Limitations - History of Present Illness INITIAL COMMENTS - FREE TEXT/NARRATIVE: The patient presents from our clinic for upper abdominal pain. The patient says a couple weeks ago she was put on metformin 500mg PO BID. She had some GI symptoms with nausea, stomach cramps and diarrhea. The past 2 days the pain is constant and increasing and she saw FAUSTO Ely in our clinic. She did lab work and her WBC was 15.97. A CT scan was done and it shows possible inflammatory bowel disease or infectious enterocolitis. Mesenteric arterial stenosis. She called our general surgeon and he was worried about ischemic bowel and recommended sending her to a vascular surgeon. She called [facility] in [place] and they had no bed. She called [facility] in [place] and talked to the GI specialist. He felt this was more the enteritis and recommended antibiotics and admission. She called to the ER and we had no beds. She called back to [facility] and they had no more beds. The patient was sent down here for pain management and antibiotics and to arrange a transfer. She is still having moderate to severe pain when she arrived. She is nauseated. She has no diarrhea now. She denies fever, chills, cough, chest pain, shortness of breath, or dysuria. She does have a history of A-fib and she is on xarelto. She got checked twice for COVID 19. The last time was 1 week ago and she was negative. Onset: Gradual Duration: Week(s): Location: Reports: Abdomen Quality: Reports: Sharp Severity: Severe Improves with: Reports: None Worsens with: Reports: None Associated Symptoms: Reports: Nausea/Vomiting. Denies: Chest Pain, Cough, Fever/Chills, Headaches, Shortness of Breath Upper Abdomen Pain Score (Numeric/FACES): 10 - Related Data Allergies Allergy/AdvReac Type Severity Reaction Status Date / Time nortriptyline Allergy Severe Rash Verified 03/13/20 13:08 Sulfa (Sulfonamide Allergy Severe Rash Verified 03/13/20 13:08 Antibiotics) Home Meds: Home Meds Esomeprazole [NexIUM] 40 mg PO BID 01/25/15 [History] Estrogens, Conjugated [Premarin] 0.625 mg PO DAILY 01/25/15 [History] Montelukast [Singulair] 10 mg PO BEDTIME 01/25/15 [History] Rosuvastatin [Crestor] 10 mg PO BEDTIME 01/25/15 [History] Ubidecarenone [Coq-10] 300 mg PO BEDTIME 04/22/15 [History] Ferrous Sulfate [Iron] 325 mg PO DAILY 09/26/15 [History] Albuterol [Proair HFA] 2 puff INH Q12H PRN 06/27/17 [History] Ezetimibe 10 mg PO DAILY 06/27/17 [History] Fluticasone Propionate [Flonase] 1 spray NASBOTH DAILY PRN 06/27/17 [History] Fluticasone/Salmeterol [Advair 500-50] 1 puff INH BID 06/27/17 [History] Gabapentin [Neurontin] 300 mg PO BID 06/27/17 [History] Tiotropium [Spiriva Handihaler] 1 puff INH DAILY 06/27/17 [History] Losartan [Cozaar] 50 mg PO DAILY 10/02/18 [History] Metoprolol Succinate [Toprol XL 100mg] 100 mg PO BID 10/02/18 [History] Rivaroxaban [Xarelto] 20 mg PO DAILY 10/02/18 [History] Calcium Carb/Vitamin D3/Vit K1 [Calcium + D Soft Chewable Tab] 1 tab PO DAILY 02/19/19 [History] Cetirizine HCl [Zyrtec] 10 mg PO DAILY PRN 02/19/19 [History] DULoxetine HCl [Cymbalta] 60 mg PO DAILY 02/19/19 [History] Diclofenac Sodium [Voltaren 1% Gel] 1 dose TOP QID PRN 02/19/19 [History] Furosemide 40 mg PO DAILY 02/19/19 [History] Potassium Chloride 20 meq PO DAILY 02/19/19 [History] calcitrioL [Calcitriol] 0.25 mg PO DAILY 02/19/19 [History] dilTIAZem HCL [Diltiazem 24Hr ER] 120 mg PO DAILY 03/13/20 [History] metFORMIN HCl [Metformin HCl] 500 mg PO BID 03/13/20 [History] Past Medical History HEENT History: Reports: Sinusitis Other HEENT History: reading glasses, chalazion L eye Cardiovascular History: Reports: Arrhythmia, High Cholesterol, Hypertension, Other (See Below) Other Cardiovascular History: SVT Respiratory History: Reports: COPD, Other (See Below) Other Respiratory History: emphysema Gastrointestinal History: Reports: Chronic Constipation, GERD, Hemorrhoids, Other (See Below) Other Gastrointestinal History: perianal cyst Genitourinary History: Reports: Other (See Below), Urinary Incontinence Other Genitourinary History: stress urinary incontinence, L kidney lesion SHERIFFS History: Reports: Other (See Below) Other SHERIFFS History: bladder sling, atrohic vaginitis, stress urinary incontinence, urgency, cystocle and rectocele, cystocele and rectocele repair Musculoskeletal History: Reports: Back Pain, Chronic, Gout, Other (See Below) Other Musculoskeletal History: right foot mass Neurological History: Reports: None Psychiatric History: Reports: Anxiety Endocrine/Metabolic History: Reports: None Hematologic History: Reports: Anemia, Iron Deficiency, Other (See Below) Other Hematologic History: leukocytosis Immunologic History: Reports: None Oncologic (Cancer) History: Reports: None, Other (See Below) Other Oncologic History: pre-cancer hyperplasia of bilateral breasts Dermatologic History: Reports: Other (See Below) Other Dermatologic History: actinic keratosis, right foot abcess - Past Surgical History HEENT Surgical History: Reports: Cataract Surgery, Tonsillectomy Cardiovascular Surgical History: Reports: None Respiratory Surgical History: Reports: None GI Surgical History: Reports: Appendectomy, Cholecystectomy, Colonoscopy, Other (See Below) Other GI Surgeries/Procedures: candidiasis of esophogus, tubular adenoma of c olon, rectal bleeding Endocrine Surgical History: Reports: None Neurological Surgical History: Reports: None Musculoskeletal Surgical History: Reports: Other (See Below) Other Musculoskeletal Surgeries/Procedures:: L5S1 fusion, right great toe surgery Oncologic Surgical History: Reports: Biopsy of Breast, None Social & Family History - Tobacco Use Smoking Status *Q: Former Smoker Used Tobacco, but Quit: Yes Month/Year Tobacco Last Used: 10 yrs - Caffeine Use Caffeine Use: Reports: None - Recreational Drug Use Recreational Drug Use: No ED ROS GENERAL - Review of Systems Review Of Systems: See Below Constitutional: Reports: No Symptoms HEENT: Reports: No Symptoms Respiratory: Reports: No Symptoms Cardiovascular: Reports: No Symptoms Endocrine: Reports: No Symptoms GI/Abdominal: Reports: Abdominal Pain, Diarrhea, Nausea, Vomiting : Reports: No Symptoms Musculoskeletal: Reports: No Symptoms ED EXAM, GI/ABD - Physical Exam Exam: See Below Exam Limited By: No Limitations General Appearance: Alert, No Apparent Distress Ears: Normal External Exam Nose: Normal Inspection Head: Atraumatic, Normocephalic Neck: Normal Inspection Respiratory/Chest: No Respiratory Distress, Lungs Clear, Normal Breath Sounds Cardiovascular: Regular Rate, Rhythm, No Edema, No Murmur GI/Abdominal Exam: Soft, No Organomegaly, No Mass, Tender (Moderate tenderness to the upper abdomen) Course - Vital Signs Last Recorded V/S: Last Vital Signs Temp 97.3 F 03/13/20 13:07 Pulse 87 03/13/20 13:07 Resp 20 03/13/20 13:07 BP 145/80 H 03/13/20 13:07 Pulse Ox 99 03/13/20 13:07 - Orders/Labs/Meds Orders: Active Orders 24 hr Category Date Time Status Peripheral IV Care [RC] . DIRECTED Care 03/13/20 13:08 Active CORONAVIRUS COVID-19 IRENE [MOLEC] Stat Lab 03/13/20 13:37 Received LACTIC ACID [CHEM] Stat Lab 03/13/20 14:01 Received Piperacillin/Tazobactam [Piperacil-Tazobact] 4.5 gm Med 03/13/20 21:30 Active Sodium Chloride 0.9% [Normal Saline] 100 ml IV Q8H Sodium Chloride 0.9% [Saline Flush] Med 03/13/20 13:08 Active 10 ml FLUSH ASDIRECTED PRN Peripheral IV Insertion Adult [OM.PC] Routine Oth 03/13/20 13:08 Ordered Medication Orders Piperacillin Sod/Tazobactam (Sod 4.5 gm/ Sodium Chloride) 100 mls @ 25 mls/hr IV Q8H STANLEY Sodium Chloride (Saline Flush) 10 ml FLUSH ASDIRECTED PRN PRN Reason: Keep Vein Open Last Admin: 03/13/20 13:25 Dose: 10 ml Documented by: GURINDER Meds: Medications Generic Name Dose Route Start Last Admin Trade Name Freq PRN Reason Stop Dose Admin Piperacillin Sod/Tazobactam 100 mls @ 25 mls/hr 10/08/20 21:30 Sod 4.5 gm/ Sodium Chloride IV Q8H STANLEY Sodium Chloride 10 ml 03/13/20 13:08 03/13/20 13:25 Saline Flush FLUSH 10 ml ASDIRECTED PRN Administration Keep Vein Open Discontinued Medications Generic Name Dose Route Start Last Admin Trade Name Freq PRN Reason Stop Dose Admin Hydromorphone HCl 1 mg 03/13/20 13:09 03/13/20 13:27 Dilaudid IVPUSH 03/13/20 13:10 1 mg ONETIME ONE Administration Piperacillin Sod/Tazobactam 100 mls @ 25 mls/hr 03/13/20 13:15 Sod 4.5 gm/ Sodium Chloride IV Q8H STANLEY Piperacillin Sod/Tazobactam 100 mls @ 200 mls/hr 03/13/20 13:30 03/13/20 13:29 Sod 4.5 gm/ Sodium Chloride IV 03/13/20 13:59 200 mls/hr ONETIME ONE Administration Ondansetron HCl 4 mg 03/13/20 13:08 03/13/20 13:25 Zofran IVPUSH 03/13/20 13:09 4 mg ONETIME ONE Administration - Re-Assessments/Exams Free Text/Narrative Re-Assessment/Exam: 03/13/20 14:46 I ordered an IV NS 1L bolus, zofran 4mg IV, dilaudid 1mg IV, zosyn 4.5grams IV and I will call [facility] in [place]. I called there and talked with the hospitalist clinical documentation specialist Dr Jones and agreed to the transfer. He did recommend a lactic acid and I have ordered a COVID 19 swab. We called 2 local EMS agencies for transport and they could not transport. We called [facility] and they will be right up to take the patient. Departure - Departure Time of Disposition: 14:50 Disposition: DC/Tfer to Acute Hospital 02 Condition: Poor Clinical Impression: Enteritis, Mesenteric artery stenosis - Discharge Information Referrals: Claudia Rouse [facility] [Primary Care Provider] - Forms: ED Department Discharge Sepsis Event Note (ED) - Evaluation Sepsis Screening Result: No Definite Risk - Focused Exam Vital Signs: Vital Signs Temp Pulse Resp BP Pulse Ox 03/13/20 13:07 97.3 F 87 20 145/80 H 99 - My Orders Last 24 Hours: My Active Orders 03/13/20 13:08 Peripheral IV Care [RC] . DIRECTED Sodium Chloride 0.9% [Saline Flush] 10 ml FLUSH ASDIRECTED PRN Peripheral IV Insertion Adult [OM.PC] Routine 03/13/20 13:37 CORONAVIRUS COVID-19 IRENE [MOLEC] Stat 03/13/20 14:01 LACTIC ACID [CHEM] Stat 03/13/20 21:30 Piperacillin/Tazobactam [Piperacil-Tazobact] 4.5 gm Sodium Chloride 0.9% [Normal Saline] 100 ml IV Q8H - Assessment/Plan Last 24 Hours: My Active Orders 03/13/20 13:08 Peripheral IV Care [RC] . DIRECTED Sodium Chloride 0.9% [Saline Flush] 10 ml FLUSH ASDIRECTED PRN Peripheral IV Insertion Adult [OM.PC] Routine 03/13/20 13:37 CORONAVIRUS COVID-19 IRENE [MOLEC] Stat 03/13/20 14:01 LACTIC ACID [CHEM] Stat 03/13/20 21:30 Piperacillin/Tazobactam [Piperacil-Tazobact] 4.5 gm Sodium Chloride 0.9% [Normal Saline] 100 ml IV Q8H
[2020-03-13] MEDS ORDERED: Piperacillin/Tazobactam 4.5 GM in Sodium Chloride 0.9% 100 ML IV ONE (13:30)
[2020-03-13 14:35] VITALS: BP 128/74; PULSE 78
== END 2020-03-13 14:50 ==
LOC: JD.ED 12:53
DX: K55.1 Chronic vascular disorders of intestine (principal); K52.9 Noninfective gastroenteritis and colitis, unspecified; E78.00 Pure hypercholesterolemia, unspecified; I10 Essential (primary) hypertension; J44.9 Chronic obstructive pulmonary disease, unspecified; K21.9 Gastro-esophageal reflux disease without esophagitis; F41.9 Anxiety disorder, unspecified; Z88.8 Allergy status to other drugs, medicaments and biological substances; Z88.2 Allergy status to sulfonamides; Z79.899 Other long term (current) drug therapy; Z79.01 Long term (current) use of anticoagulants; Z87.891 Personal history of nicotine dependence; Z11.59 Encounter for screening for other viral diseases
CPT/HCPCS: 36415; 83605; 87635; 96365; 96375; 99285; J1170; J2405; J2543; J7050; 99284; U0002

== ENCOUNTER 2020-04-18 12:34 | Emergency (ER) | payer OTHER ==
[2020-04-18] MEDS ORDERED: HYDROmorphone 1 MG/ML Syringe IVPUSH ONE ×2 (12:54→13:48)
[2020-04-18] MEDS ORDERED: Ondansetron 4 MG/2 ML SDV IVPUSH ONE (12:54)
[2020-04-18] MEDS ORDERED: Sodium Chloride 0.9% 10 ML Syringe FLUSH PRN (12:56)
--- NOTE | 2020-04-18 13:02 | EDM.PDOC ---
ED HPI GENERAL MEDICAL PROBLEM - General Chief Complaint: Abdominal Pain Stated Complaint: ABDOMINAL PAIN Time Seen by Provider: 04/18/20 12:41 Source of Information: Reports: Patient, Old Records, RN Notes Reviewed History Limitations: Reports: No Limitations - History of Present Illness INITIAL COMMENTS - FREE TEXT/NARRATIVE: Patient is a 65-year-old female who presents to the ED for evaluation of abdominal pain. The patient has a GI specialist, Dr. Benavides from [facility] in [facility], who did order a abdomen pelvis CT with contrast for her today for further evaluation. She states after she drank the contrast, she is having abdomen cramping, lots of abdominal bloating with some loose stools. She was told that the results will be sent to her doctor for review. But she developed the pain, so she come to the ER for management. She is under the understanding that she will likely need stents placed in her abdominal arteries. She is not having any nausea or vomiting, she had a few looser stools, but no formed stools. She is having no fevers or chills, no cough or shortness of breath. She is just complaining of all over generalized abdominal pain at this time. 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 There is no evidence of obstruction or bowel thickening noted. 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: Reports: Other (see below) Other 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: hydrocodone-did not help Upper Abdomen Pain Score (Numeric/FACES): 10 - Related Data Allergies Allergy/AdvReac Type Severity Reaction Status Date / Time nortriptyline Allergy Severe Rash Verified 03/13/20 13:08 Sulfa (Sulfonamide Allergy Severe Rash Verified 03/13/20 13:08 Antibiotics) Home Meds: Home Meds Esomeprazole [NexIUM] 40 mg PO BID 01/25/15 [History] Estrogens, Conjugated [Premarin] 0.625 mg PO DAILY 01/25/15 [History] Montelukast [Singulair] 10 mg PO BEDTIME 01/25/15 [History] Rosuvastatin [Crestor] 10 mg PO BEDTIME 01/25/15 [History] Ubidecarenone [Coq-10] 300 mg PO BEDTIME 04/22/15 [History] Ferrous Sulfate [Iron] 325 mg PO DAILY 09/26/15 [History] Albuterol [Proair HFA] 2 puff INH Q12H PRN 06/27/17 [History] Ezetimibe 10 mg PO DAILY 06/27/17 [History] Fluticasone Propionate [Flonase] 1 spray NASBOTH DAILY PRN 06/27/17 [History] Fluticasone/Salmeterol [Advair 500-50] 1 puff INH BID 06/27/17 [History] Gabapentin [Neurontin] 300 mg PO BID 06/27/17 [History] Tiotropium [Spiriva Handihaler] 1 puff INH DAILY 06/27/17 [History] Losartan [Cozaar] 50 mg PO DAILY 10/02/18 [History] Metoprolol Succinate [Toprol XL 100mg] 100 mg PO BID 10/02/18 [History] Rivaroxaban [Xarelto] 20 mg PO DAILY 10/02/18 [History] Calcium Carb/Vitamin D3/Vit K1 [Calcium + D Soft Chewable Tab] 1 tab PO DAILY 02/19/19 [History] Cetirizine HCl [Zyrtec] 10 mg PO DAILY PRN 02/19/19 [History] DULoxetine HCl [Cymbalta] 60 mg PO DAILY 02/19/19 [History] Diclofenac Sodium [Voltaren 1% Gel] 1 dose TOP QID PRN 02/19/19 [History] Furosemide 40 mg PO DAILY 02/19/19 [History] Potassium Chloride 20 meq PO DAILY 02/19/19 [History] calcitrioL [Calcitriol] 0.25 mg PO DAILY 02/19/19 [History] dilTIAZem HCL [Diltiazem 24Hr ER] 120 mg PO DAILY 03/13/20 [History] metFORMIN HCl [Metformin HCl] 500 mg PO BID 03/13/20 [History] Past Medical History HEENT History: Reports: Sinusitis Other HEENT History: reading glasses, chalazion L eye Cardiovascular History: Reports: Arrhythmia, High Cholesterol, Hypertension, Other (See Below) Other Cardiovascular History: SVT Respiratory History: Reports: COPD, Other (See Below) Other Respiratory History: emphysema Gastrointestinal History: Reports: Chronic Constipation, GERD, Hemorrhoids, Other (See Below) Other Gastrointestinal History: perianal cyst Genitourinary History: Reports: Other (See Below), Urinary Incontinence Other Genitourinary History: stress urinary incontinence, L kidney lesion 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: Other (See Below) Other COURIER DELIVERY DRIVER History: bladder sling, atrohic vaginitis, stress urinary incontinence, urgency, cystocle and rectocele, cystocele and rectocele repair Musculoskeletal History: Reports: Back Pain, Chronic, Gout, Other (See Below) Other Musculoskeletal History: right foot mass Neurological History: Reports: None Psychiatric History: Reports: Anxiety Endocrine/Metabolic History: Reports: None Hematologic History: Reports: Anemia, Iron Deficiency, Other (See Below) Other Hematologic History: leukocytosis Immunologic History: Reports: None Oncologic (Cancer) History: Reports: None, Other (See Below) Other Oncologic History: pre-cancer hyperplasia of bilateral breasts Dermatologic History: Reports: Other (See Below) Other Dermatologic History: actinic keratosis, right foot abcess - Past Surgical History HEENT Surgical History: Reports: Cataract Surgery, Tonsillectomy Cardiovascular Surgical History: Reports: None Respiratory Surgical History: Reports: None GI Surgical History: Reports: Appendectomy, Cholecystectomy, Colonoscopy, Other (See Below) Other GI Surgeries/Procedures: candidiasis of esophogus, tubular adenoma of colon, rectal bleeding Female Surgical History: Reports: Hysterectomy Endocrine Surgical History: Reports: None Neurological Surgical History: Reports: None Musculoskeletal Surgical History: Reports: Other (See Below) Other Musculoskeletal Surgeries/Procedures:: L5S1 fusion, right great toe surgery Oncologic Surgical History: Reports: Biopsy of Breast, None Social & Family History - Tobacco Use Tobacco Use Status *Q: Former Tobacco User Used Tobacco, but Quit: Yes Month/Year Tobacco Last Used: 11 yr - Caffeine Use Caffeine Use: Reports: Coffee, Soda, Tea - Recreational Drug Use Recreational Drug Use: No ED ROS GENERAL - Review of Systems Review Of Systems: Comprehensive ROS is negative, except as noted in HPI. ED EXAM, GI/ABD - Physical Exam Exam: See Below Exam Limited By: No Limitations General Appearance: Alert, WD/WN, No Apparent Distress (pt appears to be in moderate amount of pain.) Respiratory/Chest: No Respiratory Distress, Lungs Clear, Normal Breath Sounds, No Accessory Muscle Use, Chest Non-Tender Cardiovascular: Normal Peripheral Pulses, Regular Rate, Rhythm, No Murmur GI/Abdominal Exam: Soft, Tender (generalized abdomen tenderness, but seems to be worse over upper abdomen/epigastrium.) Extremities: Normal Inspection, Normal Capillary Refill Neurological: Alert, Oriented, Normal Cognition, No Motor/Sensory Deficits Psychiatric: Normal Affect, Normal Mood Skin Exam: Warm, Dry, Intact, Normal Color, No Rash Course - Vital Signs Last Recorded V/S: Last Vital Signs Temp 96.4 F L 04/18/20 12:47 Pulse 97 04/18/20 12:47 Resp 20 04/18/20 12:47 BP 167/77 H 04/18/20 12:47 Pulse Ox 92 L 04/18/20 12:47 - Orders/Labs/Meds Orders: Active Orders 24 hr Category Date Time Status Peripheral IV Care [RC] . DIRECTED Care 04/18/20 12:56 Active Sodium Chloride 0.9% [Normal Saline] 1,000 ml Med 04/18/20 17:39 Active IV ONETIME Sodium Chloride 0.9% [Saline Flush] Med 04/18/20 12:56 Active 10 ml FLUSH ASDIRECTED PRN Peripheral IV Insertion Adult [OM.PC] Routine Oth 04/18/20 12:56 Ordered Medication Orders Sodium Chloride (Normal Saline) 1,000 mls @ 150 mls/hr IV ONETIME ONE Stop: 04/19/20 00:18 Sodium Chloride (Saline Flush) 10 ml FLUSH ASDIRECTED PRN PRN Reason: Keep Vein Open Last Admin: 04/18/20 13:14 Dose: 10 ml Documented by: IMCHELLE Labs: Laboratory Tests 04/18/20 04/18/20 04/18/20 Range/Units 12:50 12:50 12:50 WBC 18.99 H (3.98-10.04) K/mm3 RBC 4.26 (3.98-5.22) M/mm3 Hgb 13.9 (11.2-15.7) gm/dl Hct 41.3 (34.1-44.9) % MCV 96.9 H (79.4-94.8) fl MCH 32.6 H (25.6-32.2) pg MCHC 33.7 (32.2-35.5) g/dl RDW Std Deviation 48.1 H (36.4-46.3) fL Plt Count 517 H (182-369) K/mm3 MPV 9.0 L (9.4-12.3) fl Neut % (Auto) 71.4 H (34.0-71.1) % Lymph % (Auto) 18.7 L (19.3-51.7) % Banner % (Auto) 8.2 (4.7-12.5) % Eos % (Auto) 0.5 L (0.7-5.8) Baso % (Auto) 0.2 (0.1-1.2) % Neut # (Auto) 13.56 H (1.56-6.13) K/mm3 Lymph # (Auto) 3.55 (1.18-3.74) K/mm3 Banner # (Auto) 1.56 H (0.24-0.36) K/mm3 Eos # (Auto) 0.09 (0.04-0.36) K/mm3 Baso # (Auto) 0.04 (0.01-0.08) K/mm3 Manual Slide Review Abnormal smear Sodium 127 L (136-145) mEq/L Potassium 3.5 (3.5-5.1) mEq/L Chloride 89 L (98-107) mEq/L Carbon Dioxide 27 (21-32) mEq/L Anion Gap 14.5 (5-15) BUN 7 (7-18) mg/dL Creatinine 0.8 (0.55-1.02) mg/dL Est Cr Clr Drug Dosing 75.22 mL/min Estimated GFR (MDRD) > 60 (>60) mL/min BUN/Creatinine Ratio 8.8 L (14-18) Glucose 174 H (80-115) mg/dL Lactic Acid (0.4-2.0) mmol/L Calcium 9.6 (8.5-10.1) mg/dL Magnesium 1.6 L (1.8-2.4) mg/dl Total Bilirubin 0.4 (0.2-1.0) mg/dL AST 32 (15-37) U/L ALT 43 (14-59) U/L Alkaline Phosphatase 107 (46-116) U/L C-Reactive Protein 1.2 H* (<1.0) mg/dL Total Protein 7.7 (6.4-8.2) g/dl Albumin 3.7 (3.4-5.0) g/dl Globulin 4.0 gm/dL Albumin/Globulin Ratio 0.9 L (1-2) SARS-CoV-2 RNA (IRENE) (NEGATIVE) 04/18/20 04/18/20 Range/Units 13:25 14:25 WBC (3.98-10.04) K/mm3 RBC (3.98-5.22) M/mm3 Hgb (11.2-15.7) gm/dl Hct (34.1-44.9) % MCV (79.4-94.8) fl MCH (25.6-32.2) pg MCHC (32.2-35.5) g/dl RDW Std Deviation (36.4-46.3) fL Plt Count (182-369) K/mm3 MPV (9.4-12.3) fl Neut % (Auto) (34.0-71.1) % Lymph % (Auto) (19.3-51.7) % Banner % (Auto) (4.7-12.5) % Eos % (Auto) (0.7-5.8) Baso % (Auto) (0.1-1.2) % Neut # (Auto) (1.56-6.13) K/mm3 Lymph # (Auto) (1.18-3.74) K/mm3 Banner # (Auto) (0.24-0.36) K/mm3 Eos # (Auto) (0.04-0.36) K/mm3 Baso # (Auto) (0.01-0.08) K/mm3 Manual Slide Review Sodium (136-145) mEq/L Potassium (3.5-5.1) mEq/L Chloride (98-107) mEq/L Carbon Dioxide (21-32) mEq/L Anion Gap (5-15) BUN (7-18) mg/dL Creatinine (0.55-1.02) mg/dL Est Cr Clr Drug Dosing mL/min Estimated GFR (MDRD) (>60) mL/min BUN/Creatinine Ratio (14-18) Glucose (80-115) mg/dL Lactic Acid 1.5 (0.4-2.0) mmol/L Calcium (8.5-10.1) mg/dL Magnesium (1.8-2.4) mg/dl Total Bilirubin (0.2-1.0) mg/dL AST (15-37) U/L ALT (14-59) U/L Alkaline Phosphatase (46-116) U/L C-Reactive Protein (<1.0) mg/dL Total Protein (6.4-8.2) g/dl Albumin (3.4-5.0) g/dl Globulin gm/dL Albumin/Globulin Ratio (1-2) SARS-CoV-2 RNA (IRENE) Negative (NEGATIVE) Meds: Medications Generic Name Dose Route Start Last Admin Trade Name Freq PRN Reason Stop Dose Admin Sodium Chloride 1,000 mls @ 150 mls/hr 04/18/20 17:39 Normal Saline IV 04/19/20 00:18 ONETIME ONE Sodium Chloride 10 ml 04/18/20 12:56 04/18/20 13:14 Saline Flush FLUSH 10 ml ASDIRECTED PRN Administration Keep Vein Open Discontinued Medications Generic Name Dose Route Start Last Admin Trade Name Michelle PRN Reason Stop Dose Admin Dicyclomine HCl 20 mg 04/18/20 13:44 04/18/20 13:59 Bentyl PO 04/18/20 13:45 20 mg ONETIME ONE Administration Hydromorphone HCl 1 mg 04/18/20 12:54 04/18/20 13:12 Dilaudid IVPUSH 04/18/20 12:55 1 mg ONETIME ONE Administration Hydromorphone HCl 1 mg 04/18/20 13:48 04/18/20 13:59 Dilaudid IVPUSH 04/18/20 13:49 1 mg ONETIME ONE Administration Sodium Chloride 1,000 mls @ 999 mls/hr 04/18/20 13:45 04/18/20 13:59 Normal Saline IV 04/18/20 14:45 999 mls/hr ONETIME ONE Administration Magnesium Citrate 296 ml 04/18/20 14:52 04/18/20 15:03 Citrate Of Magnesia PO 04/18/20 14:53 296 ml ONETIME ONE Administration Ondansetron HCl 4 mg 04/18/20 12:54 04/18/20 13:12 Zofran IVPUSH 04/18/20 12:55 4 mg ONETIME ONE Administration - Re-Assessments/Exams Free Text/Narrative Re-Assessment/Exam: 04/18/20 13:03 Patient presents to the ED for evaluation of abdominal pain. I do believe this is from the contrast media. CT results do show lots of narrowing of her abdominal vasculature, as well as a large amount of stool in the colon which would be consistent with a constipation type picture. Note she did not have a bowel movement today. I did try to call Dr. Benavides today, but unfortunately he is out of the office, Dr. Williamson another GI specialist is on. I will try to get the patient's pain under control, she may likely just have to follow-up with Dr. Benavides on Tuesday; if we can get her pain under control. It does sound like the patient may have to have abdominal stents placed; and this would likely be a scheduled outpatient procedure. There were no emergent findings on the CT that I could discern; but will call Dr. Williamson to see if thinks otherwise at this time. 04/18/20 13:16 I was able to talk to the GI specialist on-call, Dr. Williamson, and he would recommend checking a lactic acid and a CRP to make sure there is no new inflammation or sign of ischemia that would warrant further more emergent care. He does believe that the patient likely is having abdominal cramping and some loose stools due to the contrast that she consumed today. He does agree that the patient will likely need interventional radiology on outpatient basis for stent placement. But again he states that this most likely can be done outpatient unless something drastic happens in the meantime. 04/18/20 14:53 I was on the phone for a prolonged amount of time with CARLO Ribeiro 1 call regarding the patient's status. She is having increasing abdomen pain, some generalized distention, and her blood pressure has elevated to in the 200s systolically, this has been multiple readings that is been in the 200s. I was able to talk with the hospitalist, Dr. Lord a vascular specialist, Dr. Kline, and her GI specialist, Dr. Benavides agreed that there is nothing that needs to be done on emergent basis regarding the vascular issues that the patient has. Dr. Benavides was not overly impressed at this time, and states trying to give her something to move her bowels and see if this helps, and then transfer her to their facility tomorrow if she is not much better. Dr. Lord agreed to try the mag citrate to see if this helped the patient's pain, and then question hospitalization versus transfer. 04/18/20 16:34 Did reassess the patient at bedside, she has been having a few bowel movements, we will continue to observe her in the ER. She did appear to get a little bit more pain relief from the 2 mg Dilaudid that was given. I am hopeful that we might be able to get her home yet. 04/18/20 17:48 I did re assess I the patient at bedside, she states she did have a few bowel movements, but her abdomen pain has not improved much at all. I did contact Dr. Lord back at [facility] in [place], she does ultimately accept the patient in transfer at this time. Departure - Departure Time of Disposition: 17:49 Disposition: DC/Tfer to Acute Hospital 02 Condition: Good Clinical Impression: Stenosis of celiac artery Abdominal pain Qualifiers: Abdominal location: generalized Qualified Code(s): R10.84 - Generalized abdominal pain - Discharge Information *PRESCRIPTION DRUG MONITORING PROGRAM REVIEWED*: No *COPY OF PRESCRIPTION DRUG MONITORING REPORT IN PATIENT ANABELLA: No Referrals: Claudia Rouse [facility] [Primary Care Provider] - Forms: ED Department Discharge Sepsis Event Note (ED) - Evaluation Sepsis Screening Result: No Definite Risk - Focused Exam Vital Signs: Vital Signs Temp Pulse Resp BP Pulse Ox 04/18/20 12:47 96.4 F L 97 20 167/77 H 92 L - My Orders Last 24 Hours: My Active Orders 04/18/20 12:56 Peripheral IV Care [RC] . DIRECTED Sodium Chloride 0.9% [Saline Flush] 10 ml FLUSH ASDIRECTED PRN Peripheral IV Insertion Adult [OM.PC] Routine 04/18/20 17:39 Sodium Chloride 0.9% [Normal Saline] 1,000 ml IV ONETIME - Assessment/Plan Last 24 Hours: My Active Orders 04/18/20 12:56 Peripheral IV Care [RC] . DIRECTED Sodium Chloride 0.9% [Saline Flush] 10 ml FLUSH ASDIRECTED PRN Peripheral IV Insertion Adult [OM.PC] Routine 04/18/20 17:39 Sodium Chloride 0.9% [Normal Saline] 1,000 ml IV ONETIME
[2020-04-18] MEDS ORDERED: Dicyclomine 10 MG Cap PO ONE (13:44)
[2020-04-18] MEDS ORDERED: Sodium Chloride 0.9% 1,000 ML IV ONE ×2 (13:45→17:39)
[2020-04-18] MEDS ORDERED: Magnesium Citrate Solution 296 ML Bottle PO ONE (14:52)
[2020-04-18] MEDS ORDERED: HYDROmorphone 0.5 MG/0.5 ML Syringe IVPUSH ONE (17:56)
[2020-04-18 19:04] VITALS: BP 155/90; PULSE 90
== END 2020-04-18 19:34 ==
LOC: JD.ED 12:34
DX: R10.84 Generalized abdominal pain (principal); I77.4 Celiac artery compression syndrome; I10 Essential (primary) hypertension; E78.00 Pure hypercholesterolemia, unspecified; J43.9 Emphysema, unspecified; K21.9 Gastro-esophageal reflux disease without esophagitis; M10.9 Gout, unspecified; F41.9 Anxiety disorder, unspecified; D50.9 Iron deficiency anemia, unspecified; Z87.891 Personal history of nicotine dependence; Z20.828 Contact with and (suspected) exposure to other viral communicable diseases; Z88.2 Allergy status to sulfonamides; Z88.8 Allergy status to other drugs, medicaments and biological substances; Z79.899 Other long term (current) drug therapy; Z79.01 Long term (current) use of anticoagulants
CPT/HCPCS: 36415; 80053; 83605; 83735; 85025; 86140; 87635; 96374; 96375; 96376; 99285; A9270; J1170; J2405; J7030; U0002

== ENCOUNTER 2020-05-03 20:44 | Emergency (ER) | payer OTHER ==
[2020-05-03 20:58] VITALS: BP 185/93; PULSE 96
[2020-05-03] MEDS ORDERED: Ondansetron 4 MG/2 ML SDV IVPUSH ONE (21:23)
[2020-05-03] MEDS ORDERED: HYDROmorphone 1 MG/ML Syringe IVPUSH ONE ×2 (21:23→23:05)
--- NOTE | 2020-05-03 21:28 | EDM.PDOC ---
ED HPI GENERAL MEDICAL PROBLEM - General Chief Complaint: Abdominal Pain Stated Complaint: ABDOMINAL PAIN FROM SURGERY 10 DAYS AGO Time Seen by Provider: 05/03/20 21:18 Source of Information: Reports: Patient History Limitations: Reports: No Limitations - History of Present Illness INITIAL COMMENTS - FREE TEXT/NARRATIVE: 65-year-old female presents to the ED with diffuse severe abdominal pain. Patient reportedly had a laparotomy performed by Dr. Real at [facility] in [place] 2 weeks ago for gangrenous right hemicolon. Apparently she had a foot of her colon resected presumably a right hemicolectomy with primary anastomosis. She reports that she started to develop diffuse mid periumbilical pain last night which awoke her a few times during the night. She was able to eat small quantities of food today but reports that she had emesis x3 of bilious material. She reports gradual distention of the abdomen and bloated this. Pain is constant and severe with a colicky component. She did had a formed bowel movement without blood approximately 1700 hrs. tonight. She feels with the abdominal distention that her surgical wound is dehiscing a little bit at the inferior portion. At this time it appears intact. Steri-Strips are still present across the midline laparotomy wound. 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 Patient states no pain in her back at this point time. She has a history of chronic constipation. By history patient is a type II diabetic. She did not check her sugars today. Med list suggest she is on Xarelto 20 mg once daily. She denies noting any blood in stool past today. Onset: Today, Gradual Onset Date: 05/03/20 Onset Time: 04:00 Duration: Hour(s):, Getting Worse Location: Reports: Abdomen (Dear abdominal pain felt from umbilicus up to the epigastrium. Pain is constant but there is an intermittent severe colicky component to the pain. 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 Denies: Activity, Exercise, Lifting, Sick Contact, Trauma Associated Symptoms: Reports: Cough, Loss of Appetite, Malaise, Nausea/Vomiting (Emesis x3 today of bilious material.), Weakness (Generalized weakness no associated fever chills). 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 (see below) (None.) Abdomen Pain Score (Numeric/FACES): 10 - Related Data Allergies Allergy/AdvReac Type Severity Reaction Status Date / Time nortriptyline Allergy Severe Rash Verified 03/13/20 13:08 Sulfa (Sulfonamide Allergy Severe Rash Verified 03/13/20 13:08 Antibiotics) Home Meds: Home Meds Esomeprazole [NexIUM] 40 mg PO BID 01/25/15 [History] Estrogens, Conjugated [Premarin] 0.625 mg PO DAILY 01/25/15 [History] Montelukast [Singulair] 10 mg PO BEDTIME 01/25/15 [History] Rosuvastatin [Crestor] 10 mg PO BEDTIME 01/25/15 [History] Ubidecarenone [Coq-10] 300 mg PO BEDTIME 04/22/15 [History] Ferrous Sulfate [Iron] 325 mg PO DAILY 09/26/15 [History] Albuterol [Proair HFA] 2 puff INH Q12H PRN 06/27/17 [History] Ezetimibe 10 mg PO DAILY 06/27/17 [History] Fluticasone Propionate [Flonase] 1 spray NASBOTH DAILY PRN 06/27/17 [History] Fluticasone/Salmeterol [Advair 500-50] 1 puff INH BID 06/27/17 [History] Gabapentin [Neurontin] 300 mg PO BID 06/27/17 [History] Tiotropium [Spiriva Handihaler] 1 puff INH DAILY 06/27/17 [History] Losartan [Cozaar] 50 mg PO DAILY 10/02/18 [History] Metoprolol Succinate [Toprol XL 100mg] 100 mg PO BID 10/02/18 [History] Rivaroxaban [Xarelto] 20 mg PO DAILY 10/02/18 [History] Calcium Carb/Vitamin D3/Vit K1 [Calcium + D Soft Chewable Tab] 1 tab PO DAILY 02/19/19 [History] Cetirizine HCl [Zyrtec] 10 mg PO DAILY PRN 02/19/19 [History] DULoxetine HCl [Cymbalta] 60 mg PO DAILY 02/19/19 [History] Diclofenac Sodium [Voltaren 1% Gel] 1 dose TOP QID PRN 02/19/19 [History] Furosemide 40 mg PO DAILY 02/19/19 [History] Potassium Chloride 20 meq PO DAILY 02/19/19 [History] calcitrioL [Calcitriol] 0.25 mg PO DAILY 02/19/19 [History] dilTIAZem HCL [Diltiazem 24Hr ER] 120 mg PO DAILY 03/13/20 [History] metFORMIN HCl [Metformin HCl] 500 mg PO BID 03/13/20 [History] Past Medical History HEENT History: Reports: Sinusitis Other HEENT History: reading glasses, chalazion L eye Cardiovascular History: Reports: Arrhythmia, High Cholesterol, Hypertension, Other (See Below) Other Cardiovascular History: SVT Respiratory History: Reports: COPD, Other (See Below) Other Respiratory History: emphysema Gastrointestinal History: Reports: Chronic Constipation, GERD, Hemorrhoids, Other (See Below) Other Gastrointestinal History: perianal cyst Genitourinary History: Reports: Other (See Below), Urinary Incontinence Other Genitourinary History: stress urinary incontinence, L kidney lesion PHYS THER History: Reports: Other (See Below) Other PHYS THER History: bladder sling, atrohic vaginitis, stress urinary incontinence, urgency, cystocle and rectocele, cystocele and rectocele repair Musculoskeletal History: Reports: Back Pain, Chronic, Gout, Other (See Below) Other Musculoskeletal History: right foot mass Neurological History: Reports: None Psychiatric History: Reports: Anxiety Endocrine/Metabolic History: Reports: None Hematologic History: Reports: Anemia, Iron Deficiency, Other (See Below) Other Hematologic History: leukocytosis Immunologic History: Reports: None Oncologic (Cancer) History: Reports: None, Other (See Below) Other Oncologic History: pre-cancer hyperplasia of bilateral breasts Dermatologic History: Reports: Other (See Below) Other Dermatologic History: actinic keratosis, right foot abcess - Past Surgical History HEENT Surgical History: Reports: Cataract Surgery, Tonsillectomy Cardiovascular Surgical History: Reports: None Respiratory Surgical History: Reports: None GI Surgical History: Reports: Appendectomy, Cholecystectomy, Colonoscopy, Other (See Below) Other GI Surgeries/Procedures: candidiasis of esophogus, tubular adenoma of colon, rectal bleeding; 1 foot of right colon removed Female Surgical History: Reports: Hysterectomy Endocrine Surgical History: Reports: None Neurological Surgical History: Reports: None Musculoskeletal Surgical History: Reports: Other (See Below) Other Musculoskeletal Surgeries/Procedures:: L5S1 fusion, right great toe surgery Oncologic Surgical History: Reports: Biopsy of Breast, None Social & Family History - Tobacco Use Tobacco Use Status *Q: Former Tobacco User Used Tobacco, but Quit: Yes Month/Year Tobacco Last Used: 12 yrs - Caffeine Use Caffeine Use: Reports: Coffee - Recreational Drug Use Recreational Drug Use: No - Living Situation & Occupation Living situation: Reports: Occupation: Unemployed ED ROS GENERAL - Review of Systems Review Of Systems: See Below Constitutional: Reports: Malaise, Weakness, Fatigue, Decreased Appetite. Denies: Fever, Chills HEENT: Reports: Other (Dry mouth.) Respiratory: Reports: Shortness of Breath, Cough. Denies: Wheezing, Pleuritic Chest Pain, Sputum, Hemoptysis (Occasional nonproductive cough.) Cardiovascular: Reports: Blood Pressure Problem, Dyspnea on Exertion. Denies: Chest Pain, Claudication, Edema, Lightheadedness, Orthopnea, Palpitations Endocrine: Reports: Fatigue GI/Abdominal: Reports: Abdominal Pain, Constipation, Nausea (See history of present illness.), Vomiting (X3 today bilious material without blood), Other (Did have a formed bowel movement at about 1700 hrs. today with no relief of the abdominal pain.) : Reports: Frequency, Incontinence (Rare incontinence with coughing.). Denies: Dysuria Musculoskeletal: Reports: Joint Pain (He sips lower back neck at times.) Skin: Reports: Bruising (Bruising as she is on Xarelto 20 mg daily.) Neurological: Reports: Difficulty Walking, Weakness. Denies: Confusion, Dizziness, Headache, Numbness, Syncope, Tingling Psychiatric: Reports: No Symptoms (Abdominal pain.) Hematologic/Lymphatic: Reports: No Symptoms Immunologic: Reports: No Symptoms ED EXAM, GI/ABD - Physical Exam Exam: See Below Exam Limited By: No Limitations General Appearance: Alert, WD/WN, Severe Distress, Other (Patient appears to be in severe pain. She is able to provide a history. Temperature 36.1 heart rate 96 in sinus respiratory is 20 with O2 sats of 98% room air BP 185/93.) Eyes: Bilateral: Normal Appearance (Patient does have mild blepharal pallor. No scleral icterus.) Throat/Mouth: Normal Inspection, Other (Tongue is moderately dry and shrunken.) Head: Atraumatic, Normocephalic Neck: Normal Inspection, Supple, Non-Tender, Full Range of Motion. No: Carotid Bruit, Lymphadenopathy (L), Lymphadenopathy (R), Thyromegaly Respiratory/Chest: Respiratory Distress, Decreased Breath Sounds (Kidney at rest with O2 sats maintained at 98%. I splinting respirations bilaterally due to abdominal pain. Creased air entry to the lower 25% of lung nguyễn bilaterally posteriorly.), Wheezing. No: Lungs Clear (Vaginal expiratory wheeze.), Normal Breath Sounds, Rales, Rhonchi ( Occasional expiratory wheeze appreciated.) Cardiovascular: Regular Rate, Rhythm, No Edema, No Gallop, No Murmur, No Rub. No: Normal Peripheral Pulses GI/Abdominal Exam: Distended (All sounds are fairly quiesced sent in all 4 quadrants. Diffusely distended and mildly tympanic to percussion throughout.), Abnormal Bowel Sounds, Other (Abdominal distention's limited ability to palpate solid organs. No definitive hepatosplenomegaly identified and has a recent midline laparotomy both above and inferior to the umbilicus apparently done 2 weeks ago. This was done because of a gangrenous right hemicolon due to occlusion of vasculature supplying the bowel. She had a primary anastomosis formed. She still has Steri-Strips across the wound. It is open mildly on the inferior aspect due to stretching of the wound but is not actively draining any fluids.) Back Exam: Normal Inspection, Full Range of Motion. No: CVA Tenderness (L), CVA Tenderness (R) Extremities: Normal Inspection, Normal Range of Motion, Non-Tender, No Pedal Edema Neurological: Alert, Oriented, CN II-XII Intact, Normal Cognition Psychiatric: Anxious, Other Skin Exam: Warm, Dry, Intact, Normal Color, No Rash Course - Vital Signs Last Recorded V/S: Last Vital Signs Temp 36.1 C 05/03/20 20:56 Pulse 96 05/03/20 20:56 Resp 20 05/03/20 20:56 BP 185/93 H 05/03/20 20:56 Pulse Ox 98 05/03/20 20:56 - Orders/Labs/Meds Orders: Active Orders 24 hr Category Date Time Status Abdomen 1V Flat [CR] Stat Exams 05/03/20 21:26 Taken Abdomen 1V Upright [CR] Stat Exams 05/03/20 23:42 Taken Abdomen Pelvis w Cont [CT] Stat Exams 05/03/20 22:16 Taken Chest 1V Frontal [CR] Stat Exams 05/03/20 23:42 Ordered CULTURE BLOOD [BC] Stat Lab 05/03/20 21:50 Received CULTURE BLOOD [BC] Stat Lab 05/03/20 22:06 Received Blood Culture x2 Reflex Set [OM.PC] Stat Oth 05/03/20 21:27 Ordered Nasogastric Orogastric Tube Insertion [OM.PC] Routine Oth 05/03/20 23:42 Or dered Labs: Laboratory Tests 05/03/20 05/03/20 05/03/20 Range/Units 20:55 20:55 20:55 WBC 19.91 H (3.98-10.04) K/mm3 RBC 3.93 L (3.98-5.22) M/mm3 Hgb 12.6 (11.2-15.7) gm/dl Hct 36.7 (34.1-44.9) % MCV 93.4 D (79.4-94.8) fl MCH 32.1 (25.6-32.2) pg MCHC 34.3 (32.2-35.5) g/dl RDW Std Deviation 46.2 (36.4-46.3) fL Plt Count 1194 H* D (182-369) K/mm3 MPV 8.5 L (9.4-12.3) fl Neutrophils % (Manual) 59 (40-60) % Band Neutrophils % 6 (0-10) % Lymphocytes % (Manual) 25 (20-40) % Atypical Lymphs % 0 % Monocytes % (Manual) 10 (2-10) % Eosinophils % (Manual) 0 L (0.7-5.8) % Basophils % (Manual) 0 L (0.1-1.2) Toxic Granulation 3+ marked Platelet Estimate Marked inc Plt Morphology Comment Normal RBC Morph Comment Normal ESR (0-20) mm/hr PT 15.1 H (9.7-12.0) SECONDS INR 1.42 APTT 31.8 H (21.7-31.4) SECONDS Sodium 121 L (136-145) mEq/L Potassium 3.7 (3.5-5.1) mEq/L Chloride 85 L (98-107) mEq/L Carbon Dioxide 23 (21-32) mEq/L Anion Gap 16.7 H (5-15) BUN 8 (7-18) mg/dL Creatinine 0.6 (0.55-1.02) mg/dL Est Cr Clr Drug Dosing 99.65 mL/min Estimated GFR (MDRD) > 60 (>60) mL/min BUN/Creatinine Ratio 13.3 L (14-18) Glucose 135 H (80-115) mg/dL Lactic Acid (0.4-2.0) mmol/L Calcium 8.7 (8.5-10.1) mg/dL Magnesium 1.5 L (1.8-2.4) mg/dl Total Bilirubin 0.4 (0.2-1.0) mg/dL AST 13 L (15-37) U/L ALT 12 L (14-59) U/L Alkaline Phosphatase 113 (46-116) U/L Troponin I < 0.017 (0.00-0.056) ng/mL C-Reactive Protein 6.7 H* (<1.0) mg/dL NT-Pro-B Natriuret Pep (0-125) pg/mL Total Protein 6.3 L (6.4-8.2) g/dl Albumin 2.0 L (3.4-5.0) g/dl Globulin 4.3 gm/dL Albumin/Globulin Ratio 0.5 L (1-2) Lipase 30 L (73-393) U/L Urine Color (Yellow) Urine Appearance (Clear) Urine pH (5.0-8.0) Ur Specific Martin (1.005-1.030) Urine Protein (Negative) Urine Glucose (UA) (Negative) Urine Ketones (Negative) Urine Occult Blood (Negative) Urine Nitrite (Negative) Urine Bilirubin (Negative) Urine Urobilinogen (0.2-1.0) Ur Leukocyte Esterase (Negative) Urine RBC (0-5) /hpf Urine WBC (0-5) /hpf Ur Squamous Epith Cells (0-5) /hpf Urine Bacteria (FEW) /hpf Urine Mucus (FEW) /hpf SARS-CoV-2 RNA (IRENE) (NEGATIVE) 05/03/20 05/03/20 05/03/20 Range/Units 20:55 20:55 21:50 WBC (3.98-10.04) K/mm3 RBC (3.98-5.22) M/mm3 Hgb (11.2-15.7) gm/dl Hct (34.1-44.9) % MCV (79.4-94.8) fl MCH (25.6-32.2) pg MCHC (32.2-35.5) g/dl RDW Std Deviation (36.4-46.3) fL Plt Count (182-369) K/mm3 MPV (9.4-12.3) fl Neutrophils % (Manual) (40-60) % Band Neutrophils % (0-10) % Lymphocytes % (Manual) (20-40) % Atypical Lymphs % % Monocytes % (Manual) (2-10) % Eosinophils % (Manual) (0.7-5.8) % Basophils % (Manual) (0.1-1.2) Toxic Granulation Platelet Estimate Plt Morphology Comment RBC Morph Comment ESR 77 H (0-20) mm/hr PT (9.7-12.0) SECONDS INR APTT (21.7-31.4) SECONDS Sodium (136-145) mEq/L Potassium (3.5-5.1) mEq/L Chloride (98-107) mEq/L Carbon Dioxide (21-32) mEq/L Anion Gap (5-15) BUN (7-18) mg/dL Creatinine (0.55-1.02) mg/dL Est Cr Clr Drug Dosing mL/min Estimated GFR (MDRD) (>60) mL/min BUN/Creatinine Ratio (14-18) Glucose (80-115) mg/dL Lactic Acid 1.3 (0.4-2.0) mmol/L Calcium (8.5-10.1) mg/dL Magnesium (1.8-2.4) mg/dl Total Bilirubin (0.2-1.0) mg/dL AST (15-37) U/L ALT (14-59) U/L Alkaline Phosphatase (46-116) U/L Troponin I (0.00-0.056) ng/mL C-Reactive Protein (<1.0) mg/dL NT-Pro-B Natriuret Pep 477 H (0-125) pg/mL Total Protein (6.4-8.2) g/dl Albumin (3.4-5.0) g/dl Globulin gm/dL Albumin/Globulin Ratio (1-2) Lipase (73-393) U/L Urine Color (Yellow) Urine Appearance (Clear) Urine pH (5.0-8.0) Ur Specific Martin (1.005-1.030) Urine Protein (Negative) Urine Glucose (UA) (Negative) Urine Ketones (Negative) Urine Occult Blood (Negative) Urine Nitrite (Negative) Urine Bilirubin (Negative) Urine Urobilinogen (0.2-1.0) Ur Leukocyte Esterase (Negative) Urine RBC (0-5) /hpf Urine WBC (0-5) /hpf Ur Squamous Epith Cells (0-5) /hpf Urine Bacteria (FEW) /hpf Urine Mucus (FEW) /hpf SARS-CoV-2 RNA (IRENE) (NEGATIVE) 05/03/20 05/04/20 Range/Units 22:55 00:00 WBC (3.98-10.04) K/mm3 RBC (3.98-5.22) M/mm3 Hgb (11.2-15.7) gm/dl Hct (34.1-44.9) % MCV (79.4-94.8) fl MCH (25.6-32.2) pg MCHC (32.2-35.5) g/dl RDW Std Deviation (36.4-46.3) fL Plt Count (182-369) K/mm3 MPV (9.4-12.3) fl Neutrophils % (Manual) (40-60) % Band Neutrophils % (0-10) % Lymphocytes % (Manual) (20-40) % Atypical Lymphs % % Monocytes % (Manual) (2-10) % Eosinophils % (Manual) (0.7-5.8) % Basophils % (Manual) (0.1-1.2) Toxic Granulation Platelet Estimate Plt Morphology Comment RBC Morph Comment ESR (0-20) mm/hr PT (9.7-12.0) SECONDS INR APTT (21.7-31.4) SECONDS Sodium (136-145) mEq/L Potassium (3.5-5.1) mEq/L Chloride (98-107) mEq/L Carbon Dioxide (21-32) mEq/L Anion Gap (5-15) BUN (7-18) mg/dL Creatinine (0.55-1.02) mg/dL Est Cr Clr Drug Dosing mL/min Estimated GFR (MDRD) (>60) mL/min BUN/Creatinine Ratio (14-18) Glucose (80-115) mg/dL Lactic Acid (0.4-2.0) mmol/L Calcium (8.5-10.1) mg/dL Magnesium (1.8-2.4) mg/dl Total Bilirubin (0.2-1.0) mg/dL AST (15-37) U/L ALT (14-59) U/L Alkaline Phosphatase (46-116) U/L Troponin I (0.00-0.056) ng/mL C-Reactive Protein (<1.0) mg/dL NT-Pro-B Natriuret Pep (0-125) pg/mL Total Protein (6.4-8.2) g/dl Albumin (3.4-5.0) g/dl Globulin gm/dL Albumin/Globulin Ratio (1-2) Lipase (73-393) U/L Urine Color Yellow (Yellow) Urine Appearance Clear (Clear) Urine pH 6.5 (5.0-8.0) Ur Specific Martin 1.015 (1.005-1.030) Urine Protein Negative (Negative) Urine Glucose (UA) Negative (Negative) Urine Ketones 4+ H (Negative) Urine Occult Blood Negative (Negative) Urine Nitrite Negative (Negative) Urine Bilirubin Negative (Negative) Urine Urobilinogen 0.2 (0.2-1.0) Ur Leukocyte Esterase Negative (Negative) Urine RBC 0-5 (0-5) /hpf Urine WBC 0-5 (0-5) /hpf Ur Squamous Epith Cells 5-10 H (0-5) /hpf Urine Bacteria Few (FEW) /hpf Urine Mucus Rare (FEW) /hpf SARS-CoV-2 RNA (IRENE) Negative (NEGATIVE) Meds: Medications Discontinued Medications Generic Name Dose Route Start Last Admin Trade Name Michelle PRN Reason Stop Dose Admin Hydromorphone HCl 1 mg 05/03/20 21:23 05/03/20 21:39 Dilaudid IVPUSH 05/03/20 21:24 1 mg ONETIME ONE Administration Hydromorphone HCl 1 mg 05/03/20 23:05 05/03/20 23:11 Dilaudid IVPUSH 05/03/20 23:06 1 mg ONETIME ONE Administration Sodium Chloride 1,000 mls @ 250 mls/hr 05/03/20 21:30 05/03/20 21:37 Normal Saline IV 250 mls/hr ASDIRECTED STANLEY Administration Magnesium Sulfate 4 gm/ Premix 50 mls @ 12.5 mls/hr 05/03/20 22:20 05/03/20 22:36 IV 05/04/20 02:19 12.5 mls/hr ONETIME ONE Administration Sodium Chloride 100 mls @ 60 mls/hr 05/03/20 22:45 05/04/20 00:28 Normal Saline IV 60 mls/hr ASDIRECTED STANLEY Administration Sodium Chloride 100 mls @ 150 mls/hr 05/04/20 00:30 Normal Saline IV ASDIRECTED STANLEY Iopamidol 100 ml 05/03/20 22:36 Isovue-300 (61%) IVPUSH 05/03/20 22:37 ONETIME ONE Iopamidol 100 ml 05/04/20 00:27 05/04/20 00:28 Isovue-300 (61%) IVPUSH 05/04/20 00:28 100 ml ONETIME ONE Administration Lidocaine HCl 10 ml 05/03/20 23:46 05/04/20 00:11 Xylocaine 2% Jelly MUCMEM 05/03/20 23:47 10 ml ONETIME ONE Administration Ondansetron HCl 4 mg 05/03/20 21:23 05/03/20 21:37 Zofran IVPUSH 05/03/20 21:24 4 mg ONETIME ONE Administration Ondansetron HCl 4 mg 05/04/20 00:20 05/04/20 00:32 Zofran IVPUSH 05/04/20 00:21 4 mg ONETIME ONE Administration - Radiology Interpretation Free Text/Narrative:: 65-year-old female presents to the ED with gradual worsening of abdominal pain since around 0400 hrs. this morning. All quantities of food today but vomited them all back up. She has been primarily sucking on ice cubes for fluid. She states the pain has worsened over the last 4 to 6 hours. It is constant with a strong colicky component mostly felt periumbilically and in the epigastrium. Patient recently by 2 weeks ago had a emergency laparotomy for an ischemic right hemicolon performed by Dr. Real at [facility] in [place]. 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 Is unclear whether or not plans with interventional radiology or vascular surgery to place stents in these areas or not. Patient has been recovering from the surgery up until early this morning when she started she developed diffuse mid abdominal pain which has gradually worsened as the day has gone on. At the time of presentation she is diffusely bloated and distended. Her midline laparotomy wound is still intact. No signs of infection. Bowel sounds are few and far between on examination worrisome for a developing ileus possibly due to vascular occlusion/ischemic bowel. Patient's pain is 10 out of 10 on exam. Afebrile. Plan IV normal saline at 250 mils per hour. Given Dilaudid 1 mg IV with Zofran 4 mg IV for pain and nausea relief. 1 view chest and 1 view of the abdomen to be obtained. Routine labs performed including a serum lipase and lactic acid. Coronavirus screen as the patient is going to require hospitalization. CT of the abdomen likely be required but I have to wait until I see what her renal function is before giving IV contrast. - Re-Assessments/Exams Free Text/Narrative Re-Assessment/Exam: 05/03/20 22:12 Labs reveal a PT of 15.1 with an INR of 1.42 and a PTT of 31.8. Sodium is low at 121 with a potassium of 3.7. Chloride is 85 with a bicarb of 2 3. Anion gap is 16.7. BUN is 8 with a creatinine of 0.6. GFR is greater than 60. Glucose 135 with a calcium of 8.7. Magnesium low at 1.5. Liver function normal. Troponin I is less than 0.017. C-reactive protein elevated at 6.7. BNP elevated at 477. Total protein 6.3 with an albumin fraction low at 2.0. Lipase normal at 30. KUB reveals evidence of diffuse dilated loops of small bowel particularly left upper hemiabdomen compatible with ileus and early bowel obstruction. 05/03/20 22:15 reports the nausea is much improved. Pain is tolerable at this point time. Renal function just returned and it is normal. She will therefore have CT of the abdomen and pelvis performed with IV contrast only.Hematology reveals an elevated white count at 19.91 with a differential revealing 59% twyla trophils and 6% bands cells. Hemoglobin is 12.6 with a hematocrit of 36.7. Platelet count is severely elevated at 1194 the slide shows a 3+ marked toxic granulation pattern. Renal function is normal therefore we will proceed with CT of the abdomen and pelvis with IV contrast only. 05/03/20 23:38 CT of the abdomen performed with IV contrast only. Visualized portion of the lung bases are clear. Heart size appears normal. The visualized distal esophagus is normal. Liver shows normal contour with no mass lesions. No intrahepatic biliary ductal dilatation. Mild fatty infiltration of the liver appreciated. Evidence of prior cholecystectomy with no significant dilatation of the common bile duct. Moderate pancreatic atrophy without any acute abnormality. No pancreatic ductal dilatation. Spleen is normal with no splenomegaly. Adrenal glands normal with no adrenal mass. Kidneys and ureters show no acute abnormalities. No hydronephrosis or hydroureter. No urinary tract stones are identified. 12 mm left renal cortical cyst appreciated. The stomach is partially fluid distended but otherwise unremarkable. Moderate small bowel dilatation with diffuse fluid distention measuring up to 4.6 cm in diameter. No definite transition point is identified. There is a right upper quadrant ileocolonic Annas to muscle for proximal colonic resection which is new since 04/18/2020. Some adjacent mesenteric edema and stranding is appreciated and a small of mesenteric fluid in this region which is new since 04/18/2020 probably represents postoperative changes since recent surgery. There is mild small bowel thickening in the distal ileum just proximal to the anastomosis which probably represents bowel wall edema from recent surgery although an element of active enteritis in this distribution is difficult to exclude. Diffuse fluid and gaseous distention of the colon to the level of the rectum with no focal transition point or obstructive mass lesion identified. Appendix is normal with no evidence of appendicitis. Vasculature reveals moderate atherosclerotic aortoiliac calcification without aneurysm. No adenopathy appreciated. Patient has had previous hysterectomy. Urinary bladder appears normal. No acute osseous abnormalities. Lumbar fusion hardware with evidence of chronic loosening of the left L4 pedicle screw appreciated. Spinal stimulator again noted with leads extending into the thoracic spinal canal unchanged. There is an infraumbilical anterior midline abdominal wall hernia which is new since 04/18/2020. This migrated represents an incisional hernia given the evidence of recent surgery and the small amounts of soft tissue air present in this region. This does not appear to be a transition point for the bowel dilatation is not felt to represent a site of bowel obstruction. A nasogastric tube will be inserted to low continuous suction. Is having increased pain since getting back from CT suite. Will repeat Dilaudid 1 mg IV. 05/03/20 23:43 Sedimentation rate is elevated at 77. Lactic acid is 1.3. COVID-19 test is negative. I have put a call into the 1 call nurse at [facility] in [place]. She will phone me back as she is tied up at present time. 05/04/20 00:07 [address] spoken with Dr. Luis--surgeon on-call at [facility] in [place]. They do have a bed for her. She will therefore be sent to that institution for evaluation by surgery as soon as possible. [facility] available for transport. Departure - Departure Time of Disposition: 01:02 Disposition: DC/Tfer to Acute Hospital 02 Condition: Serious Clinical Impression: Hyponatremia, Neutrophilic leukocytosis, Essential thrombocytosis Abdominal pain Qualifiers: Abdominal location: generalized Qualified Code(s): R10.84 - Generalized abdominal pain Bowel obstruction Qualifiers: Intestinal obstruction extent: partial - Discharge Information *PRESCRIPTION DRUG MONITORING PROGRAM REVIEWED*: Not Applicable *COPY OF PRESCRIPTION DRUG MONITORING REPORT IN PATIENT ANABELLA: Not Applicable Referrals: Claudia Rouse, PATIENT RESOURCE COORDINATOR [Primary Care Provider] - Forms: ED Department Discharge Additional Instructions: Patient is known to have diffuse atherosclerotic disease of her aorta involving the superior and inferior mesenteric arteries. 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 Real at [facility] in [place] 2 weeks ago. Recurrence of diffuse severe abdominal pain within the last 20 hours. Associated nausea and vomiting. X-ray suggest dilated small bowel left upper quadrant. CT reveals diffuse small bowel dilatation with air-fluid levels and air throughout the colon to the rectal vault. Absence of bowel sounds suggests ileus . Developing small bowel obstruction versus ischemic bowel. And sent to [facility] in [place] with Dr. Luis [facility] Sepsis Event Note (ED) - Evaluation Sepsis Screening Result: No Definite Risk - Focused Exam Vital Signs: Vital Signs Temp Pulse Resp BP Pulse Ox 05/03/20 20:56 36.1 C 96 20 185/93 H 98 - My Orders Last 24 Hours: My Active Orders 05/03/20 21:26 Abdomen 1V Flat [CR] Stat 05/03/20 21:27 Blood Culture x2 Reflex Set [OM.PC] Stat 05/03/20 21:50 CULTURE BLOOD [BC] Stat 05/03/20 22:06 CULTURE BLOOD [BC] Stat 05/03/20 22:16 Abdomen Pelvis w Cont [CT] Stat 05/03/20 23:42 Abdomen 1V Upright [CR] Stat Chest 1V Frontal [CR] Stat Nasogastric Orogastric Tube Insertion [OM.PC] Routine - Assessment/Plan Last 24 Hours: My Active Orders 05/03/20 21:26 Abdomen 1V Flat [CR] Stat 05/03/20 21:27 Blood Culture x2 Reflex Set [OM.PC] Stat 05/03/20 21:50 CULTURE BLOOD [BC] Stat 05/03/20 22:06 CULTURE BLOOD [BC] Stat 05/03/20 22:16 Abdomen Pelvis w Cont [CT] Stat 05/03/20 23:42 Abdomen 1V Upright [CR] Stat Chest 1V Frontal [CR] Stat Nasogastric Orogastric Tube Insertion [OM.PC] Routine
[2020-05-03] MEDS ORDERED: Sodium Chloride 0.9% 1,000 ML IV SCH (21:30)
[2020-05-03] MEDS ORDERED: Magnesium Sulfate/Water 4 GM in Premix Bag 1 BAG IV ONE (22:20)
[2020-05-03] MEDS ORDERED: Iopamidol 612 MG/ML 100 ML Bottle IVPUSH ONE (22:36)
[2020-05-03] MEDS ORDERED: Sodium Chloride 0.9% 100 ML IV SCH (22:45)
[2020-05-03] MEDS ORDERED: Lidocaine 2% Jelly 10 ML Urojet MUCMEM ONE (23:46)
[2020-05-04] MEDS ORDERED: Ondansetron 4 MG/2 ML SDV IVPUSH ONE (00:20)
[2020-05-04] MEDS ORDERED: Iopamidol 612 MG/ML 100 ML Bottle IVPUSH ONE (00:27)
[2020-05-04] MEDS ORDERED: Sodium Chloride 0.9% 100 ML IV SCH (00:30)
--- NOTE | 2020-05-05 12:15 | CR ---
PROCEDURE INFORMATION: Exam: XR Abdomen, 1 View Exam date and time: 05/03/2020 9:32 PM Age: 65 years old Clinical indication: Patient HX: Severe abdominal pain onset tonight with strong colicky component. Bowel obstruction clinically, HX of ischemic bowel; Additional info: Prior report scanned in for your review TECHNIQUE: Imaging protocol: XR of the abdomen. Views: Frontal supine view of the abdomen. 1 View. COMPARISON: CT Abdomen Pelvis w Cont 04/18/2020 9:35 AM FINDINGS: Lungs: The visualized lung bases are clear. Heart/Mediastinum: Heart size normal. Gastrointestinal tract: No evidence of pneumatosis or portal gas. Intraperitoneal space: A few dilated small bowel loops are seen in the left mid abdominal region. No free air is evident. Organs: Right upper quadrant surgical clips suggest prior cholecystectomy. No evidence of organomegaly. Bones/joints: No acute osseous abnormalities. Osteopenia. Lower lumbar spinal fusion with lucency surrounding the left L3 pedicle screw suspicious for chronic hardware loosening, unchanged.. Spinal stimulator with thoracic leads demonstrating no gross hardware complication or change. Soft tissues: No gross soft tissue masses. Other findings: No pathological calcifications. IMPRESSION: 1. There are few dilated small bowel loops in the left mid abdominal region which are nonspecific in nature and could relate to ileus or obstruction. Consider follow-up imaging or CT assessment as clinically indicated. 2. No evidence of bowel perforation although supine positioning limits sensitivity for free air. 3. Evidence of chronic loosening of the left L3 pedicle screw. Thank you for allowing us to participate in the care of your patient. Dictated and Authenticated by: Alex Beltran MD 05/03/2020 11:11 PM Central Time ([place] & [place]) [place]
--- NOTE | 2020-05-05 12:19 | CT ---
PROCEDURE INFORMATION: Exam: CT Abdomen And Pelvis With Contrast Exam date and time: 05/03/2020 10:47 PM Age: 65 years old Clinical indication: Patient HX: Abdominal pain onset today, 2 week prior SX of abdomen; Additional info: Previous reports scanned in for your review TECHNIQUE: Imaging protocol: Computed tomography of the abdomen and pelvis with intravenous contrast. Radiation optimization: All CT scans at this facility use at least one of these dose optimization techniques: automated exposure control; mA and/or kV adjustment per patient size (includes targeted exams where dose is matched to clinical indication); or iterative reconstruction. Contrast material: ISOVUE 300MG; Contrast volume: 98 ml; Contrast route: INTRAVENOUS (IV); COMPARISON: CT Abdomen Pelvis w Cont 04/18/2020 9:35 AM FINDINGS: Lungs: Visualized lung bases are clear. Heart: Heart size normal. Mediastinal space: The visualized distal esophagus is normal. Liver: Normal contour. No mass lesions. No intrahepatic biliary ductal dilatation. Mild fatty infiltration of the liver. Gallbladder and bile ducts: Evidence of prior cholecystectomy with no significant dilatation of the common bile duct. Pancreas: Moderate pancreatic atrophy without acute abnormality. No pancreatic ductal dilatation. Spleen: Normal. No splenomegaly. Adrenal glands: Normal. No adrenal mass. Kidneys and ureters: No acute abnormalities. No hydronephrosis or hydroureter. No urinary tract stones are identified. 12 mm left renal cortical cyst. No further imaging evaluation is required. Stomach and bowel: The stomach is partially fluid distended but otherwise unremarkable. Moderate small bowel dilatation with diffuse fluid distension, measuring up to 4.6 cm diameter. No definite transition point is identified. There is a right upper quadrant ileocolonic anastomosis with proximal colonic resection which is new since 04/18/2020, correlate with surgical history. Some adjacent mesenteric edema/stranding and a small amount of mesenteric fluid is present in this region which is new since 04/18/2020 and probably represents postoperative changes recent surgery. There is mild small bowel wall thickening in the distal ileum just proximal to the anastomosis which probably represents bowel wall edema from recent surgery although an element of active enteritis in this distribution is difficult to exclude. Diffuse fluid and gaseous distension of the colon to the level of the rectum with no focal transition point or obstructive mass lesion identified. Appendix: Normal. No evidence of appendicitis. Intraperitoneal space: See "Stomach and bowel" finding. Vasculature: Moderate atherosclerotic aortoiliac calcification without aneurysm. Lymph nodes: No adenopathy. Urinary bladder: Unremarkable as visualized. Reproductive: Prior hysterectomy. Bones/joints: No acute osseous abnormalities. Lumbar fusion hardware with evidence of chronic loosening of the left L4 pedicle screw. Spinal stimulator again noted with leads extending into the thoracic spinal canal, unchanged. Soft tissues: There is an infraumbilical anterior midline abdominal wall hernia which is new since 04/18/2020. This might represent an incisional hernia given the evidence of recent surgery and the small amounts of soft tissue air present in this region. This does not appear to be a transition point for the bowel dilatation and is not felt to represent a site of bowel obstruction. IMPRESSION: 1. Diffuse fluid distention of the small bowel and large bowel with moderate small bowel dilatation. Given the generalized nature, the findings are most suggestive of ileus, with no transition point suggestive bowel obstruction. 2. There is evidence of recent proximal colonic resection with right upper quadrant ileocolonic anastomosis. There is local mesenteric edema/stranding in this region probably representing residual postoperative changes. 3. There is also some mild small bowel wall thickening just proximal to the ileocolonic anastomosis probably representing postoperative bowel wall edema although an element of enteritis could produce this appearance. No evidence of perforation or abscess. 4. Postoperative changes in the infraumbilical anterior abdominal wall with small amounts of postoperative soft tissue air. There is an infraumbilical midline anterior abdominal wall hernia in this region which is new since 04/18/2020 , suggesting an incisional hernia. 5. Fatty liver. 6. Prior L4-S1 fusion with chronic lucency surrounding the left L4 pedicle screw suggesting chronic hardware loosening. 7. Additional non-emergent findings detailed above. COMMENTS: Consistent with the [employer]'s Incidental Findings Committee white paper (J Am Stewart Radiol 2018): Any incidental renal lesion less than 1 cm or classified as too small to characterize, or any incidental cystic renal lesion characterized as simple-appearing, is likely benign. No follow-up imaging is recommended for these lesions per consensus recommendations based on imaging criteria. Thank you for allowing us to participate in the care of your patient. Dictated and Authenticated by: Alex Beltran MD 05/04/2020 12:25 AM Central Time ([place] & [place]) [place]
--- NOTE | 2020-05-05 12:33 | CR ---
PROCEDURE INFORMATION: Exam: XR Abdomen, 1 View Exam date and time: 05/04/2020 12:20 AM Age: 65 years old Clinical indication: Device placement; GI device; Nasogastric tube; Patient HX: Confirm NG tube placement TECHNIQUE: Imaging protocol: XR of the abdomen. Views: Frontal supine view of the abdomen. 1 View. COMPARISON: OT Abdomen Pelvis w Cont 05/03/2020 10:47 PM FINDINGS: Tubes, catheters and devices: Nasogastric tube with the tip in the gastric body, the side port at the gastroesophageal junction. Gastrointestinal tract: Bowel gas pattern consistent with small-bowel obstruction. Bones/joints: Unremarkable. IMPRESSION: Nasogastric tube with side port at gastroesophageal junction. Small-bowel obstruction. Thank you for allowing us to participate in the care of your patient. Dictated and Authenticated by: Jeremi Flaherty MD 05/04/2020 2:38 AM Central Time ([place] & [place]) [place]
== END 2020-05-04 01:02 ==
LOC: JD.ED 20:44
DX: K56.609 Unspecified intestinal obstruction, unspecified as to partial versus complete obstruction (principal); E87.1 Hypo-osmolality and hyponatremia; D72.828 Other elevated white blood cell count; D47.3 Essential (hemorrhagic) thrombocythemia; E78.00 Pure hypercholesterolemia, unspecified; I10 Essential (primary) hypertension; J44.9 Chronic obstructive pulmonary disease, unspecified; K21.9 Gastro-esophageal reflux disease without esophagitis; F41.9 Anxiety disorder, unspecified; Z88.8 Allergy status to other drugs, medicaments and biological substances; Z88.2 Allergy status to sulfonamides; Z79.899 Other long term (current) drug therapy; Z79.01 Long term (current) use of anticoagulants; Z87.891 Personal history of nicotine dependence
CPT/HCPCS: 36415; 43752; 74018; 74177; 80053; 81001; 83605; 83690; 83735; 83880; 84484; 85007; 85027; 85610; 85652; 85730; 86140; 87040; 87635; 96365; 96366; 96375; 96376; 99285; J1170; J2405; J3475; J7030; Q9967; U0002

== ENCOUNTER 2020-07-09 15:51 | Emergency (ER) | payer OTHER ==
[2020-07-09 16:34] VITALS: BP 137/78; PULSE 99
--- NOTE | 2020-07-09 16:55 | EDM.PDOC ---
ED HPI GENERAL MEDICAL PROBLEM - General Chief Complaint: General Stated Complaint: MAGNESIUM INFUSION Time Seen by Provider: 07/09/20 16:34 Source of Information: Reports: Patient, RN Notes Reviewed History Limitations: Reports: No Limitations - History of Present Illness INITIAL COMMENTS - FREE TEXT/NARRATIVE: Patient is a 65-year-old female presenting to the emergency department at the request of her accountant budget for hypomagnesemia. She had labs drawn in our facility yesterday and her magnesium returned at 0.9. Patient states that she was just discharged on 09 June after having a 35-day hospital stay in [place] with a bowel resection. The blood work she had drawn yesterday was her routine labs. She states she has had hypomagnesemia in the past but has never required IV infusion. She does have a prescription for magnesium at home, however given as low as her magnesium was she was sent to the ER for infusion. She does have a history of A. fib which was a more concern for her accountant budget, however she denies any palpitations or cardiac complaints over the last few days. - Related Data Allergies Allergy/AdvReac Type Severity Reaction Status Date / Time nortriptyline Allergy Severe Rash Verified 07/09/20 16:26 Sulfa (Sulfonamide Allergy Severe Rash Verified 07/09/20 16:26 Antibiotics) Home Meds: Home Meds Esomeprazole [NexIUM] 40 mg PO BID 01/25/15 [History] Estrogens, Conjugated [Premarin] 0.625 mg PO DAILY 01/25/15 [History] Montelukast [Singulair] 10 mg PO BEDTIME 01/25/15 [History] Rosuvastatin [Crestor] 10 mg PO BEDTIME 01/25/15 [History] Ubidecarenone [Coq-10] 300 mg PO BEDTIME 04/22/15 [History] Ferrous Sulfate [Iron] 325 mg PO DAILY 09/26/15 [History] Albuterol [Proair HFA] 2 puff INH Q12H PRN 06/27/17 [History] Ezetimibe 10 mg PO DAILY 06/27/17 [History] Fluticasone Propionate [Flonase] 1 spray NASBOTH DAILY PRN 06/27/17 [History] Fluticasone/Salmeterol [Advair 500-50] 1 puff INH BID 06/27/17 [History] Gabapentin [Neurontin] 300 mg PO BID 06/27/17 [History] Tiotropium [Spiriva Handihaler] 1 puff INH DAILY 06/27/17 [History] Losartan [Cozaar] 50 mg PO DAILY 10/02/18 [History] Metoprolol Succinate [Toprol XL 100mg] 100 mg PO BID 10/02/18 [History] Rivaroxaban [Xarelto] 20 mg PO DAILY 10/02/18 [History] Calcium Carb/Vitamin D3/Vit K1 [Calcium + D Soft Chewable Tab] 1 tab PO DAILY 02/19/19 [History] Cetirizine HCl [Zyrtec] 10 mg PO DAILY PRN 02/19/19 [History] DULoxetine HCl [Cymbalta] 60 mg PO DAILY 02/19/19 [History] Furosemide 40 mg PO DAILY 02/19/19 [History] Potassium Chloride 20 meq PO DAILY 02/19/19 [History] calcitrioL [Calcitriol] 0.25 mg PO DAILY 02/19/19 [History] dilTIAZem HCL [Diltiazem 24Hr ER] 120 mg PO DAILY 03/13/20 [History] metFORMIN HCl [Metformin HCl] 500 mg PO BID 03/13/20 [History] Clopidogrel Bisulfate [Plavix] 1 tab PO DAILY 07/09/20 [History] Past Medical History HEENT History: Reports: Sinusitis Other HEENT History: reading glasses, chalazion L eye Cardiovascular History: Reports: Arrhythmia, High Cholesterol, Hypertension, Other (See Below) Other Cardiovascular History: SVT Respiratory History: Reports: COPD, Other (See Below) Other Respiratory History: emphysema Gastrointestinal History: Reports: Chronic Constipation, GERD, Hemorrhoids, Other (See Below) Other Gastrointestinal History: perianal cyst Genitourinary History: Reports: Other (See Below), Urinary Incontinence Other Genitourinary History: stress urinary incontinence, L kidney lesion 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: Reports: Other (See Below) 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: bladder sling, atrohic vaginitis, stress urinary incontinence, urgency, cystocle and rectocele, cystocele and rectocele repair Musculoskeletal History: Reports: Back Pain, Chronic, Gout, Other (See Below) Other Musculoskeletal History: right foot mass Neurological History: Reports: None Psychiatric History: Reports: Anxiety Endocrine/Metabolic History: Reports: None Hematologic History: Reports: Anemia, Iron Deficiency, Other (See Below) Other Hematologic History: leukocytosis Immunologic History: Reports: None Oncologic (Cancer) History: Reports: None, Other (See Below) Other Oncologic History: pre-cancer hyperplasia of bilateral breasts Dermatologic History: Reports: Other (See Below) Other Dermatologic History: actinic keratosis, right foot abcess - Infectious Disease History Infectious Disease History: Reports: Chicken Pox, Measles, Mumps - Past Surgical History HEENT Surgical History: Reports: Cataract Surgery, Oral Surgery, Tonsillectomy Cardiovascular Surgical History: Reports: None Respiratory Surgical History: Reports: None GI Surgical History: Reports: Appendectomy, Cholecystectomy, Colonoscopy, Other (See Below) Other GI Surgeries/Procedures: candidiasis of esophogus, tubular adenoma of colon, rectal bleeding; 1 foot of right colon removed Female Surgical History: Reports: Hysterectomy Endocrine Surgical History: Reports: None Neurological Surgical History: Reports: None Musculoskeletal Surgical History: Reports: Other (See Below) Other Musculoskeletal Surgeries/Procedures:: L5S1 fusion, right great toe surgery Oncologic Surgical History: Reports: Biopsy of Breast, None Social & Family History - Family History Family Medical History: No Pertinent Family History - Tobacco Use Tobacco Use Status *Q: Former Tobacco User Used Tobacco, but Quit: Yes Month/Year Tobacco Last Used: 06/2010 - Caffeine Use Caffeine Use: Reports: None - Recreational Drug Use Recreational Drug Use: No - Living Situation & Occupation Living situation: Reports: Occupation: Unemployed ED ROS GENERAL - Review of Systems Review Of Systems: See Below Constitutional: Reports: No Symptoms. Denies: Fever, Chills HEENT: Reports: No Symptoms Respiratory: Reports: No Symptoms Cardiovascular: Reports: No Symptoms. Denies: Chest Pain, Lightheadedness, Palpitations, Syncope Endocrine: Reports: No Symptoms GI/Abdominal: Reports: No Symptoms : Reports: No Symptoms Musculoskeletal: Reports: No Symptoms Skin: Reports: No Symptoms Neurological: Reports: No Symptoms Psychiatric: Reports: No Symptoms Hematologic/Lymphatic: Reports: No Symptoms Immunologic: Reports: No Symptoms ED EXAM, GENERAL - Physical Exam Exam: See Below Exam Limited By: No Limitations General Appearance: Alert, WD/WN, No Apparent Distress Respiratory/Chest: No Respiratory Distress, Lungs Clear, Normal Breath Sounds, No Accessory Muscle Use, Chest Non-Tender Cardiovascular: Normal Peripheral Pulses, Regular Rate, Rhythm, No Edema, No Gallop, No JVD, No Murmur, No Rub GI/Abdominal: Normal Bowel Sounds, Soft, Non-Tender, No Organomegaly, No Distention, No Abnormal Bruit, No Mass Neurological: Alert, Oriented, CN II-XII Intact, Normal Cognition, Normal Gait, Normal Reflexes, No Motor/Sensory Deficits Psychiatric: Normal Affect, Normal Mood Skin Exam: Warm, Dry, Intact, Normal Color, No Rash #1 Interpretation EKG Date: 07/09/20 Time: 17:13 Rhythm: NSR Rate (Beats/Min): 96 [place]: Normal P-Wave: Present QRS: Normal ST-T: Normal QT: Normal Course - Vital Signs Last Recorded V/S: Last Vital Signs Temp 97.4 F 07/09/20 16:32 Pulse 99 07/09/20 16:32 Resp 18 07/09/20 16:32 BP 137/78 07/09/20 16:32 Pulse Ox 100 07/09/20 16:32 - Orders/Labs/Meds Orders: Active Orders 24 hr Category Date Time Status EKG Documentation Completion [RC] ASDIRECTED Care 07/09/20 16:37 Active Peripheral IV Care [RC] . DIRECTED Care 07/09/20 16:37 Active Sodium Chloride 0.9% [Saline Flush] Med 07/09/20 16:37 Active 10 ml FLUSH ASDIRECTED PRN Peripheral IV Insertion Adult [OM.PC] Stat Oth 07/09/20 16:37 Ordered EKG 12 Lead [EK] Stat Ther 07/09/20 16:37 Ordered Medication Orders Sodium Chloride (Saline Flush) 10 ml FLUSH ASDIRECTED PRN PRN Reason: Keep Vein Open Last Admin: 07/09/20 17:29 Dose: 10 ml Documented by: QUIQUE Labs: Laboratory Tests 07/09/20 07/09/20 Range/Units 18:22 18:40 WBC 13.33 H (3.98-10.04) K/mm3 RBC 3.05 L (3.98-5.22) M/mm3 Hgb 9.2 L D (11.2-15.7) gm/dl Hct 28.6 L (34.1-44.9) % MCV 93.8 D (79.4-94.8) fl MCH 30.2 (25.6-32.2) pg MCHC 32.2 (32.2-35.5) g/dl RDW Std Deviation 57.4 H (36.4-46.3) fL Plt Count 532 H (182-369) K/mm3 MPV 8.2 L (9.4-12.3) fl Neut % (Auto) 69.2 (34.0-71.1) % Lymph % (Auto) 22.0 (19.3-51.7) % [place] % (Auto) 7.4 (4.7-12.5) % Eos % (Auto) 0.5 L (0.7-5.8) Baso % (Auto) 0.2 (0.1-1.2) % Neut # (Auto) 9.24 H (1.56-6.13) K/mm3 Lymph # (Auto) 2.93 (1.18-3.74) K/mm3 [place] # (Auto) 0.98 H (0.24-0.36) K/mm3 Eos # (Auto) 0.07 (0.04-0.36) K/mm3 Baso # (Auto) 0.02 (0.01-0.08) K/mm3 Manual Slide Review Abnormal smear Sodium 134 L (136-145) mEq/L Potassium 3.8 (3.5-5.1) mEq/L Chloride 99 (98-107) mEq/L Carbon Dioxide 19 L (21-32) mEq/L Anion Gap 19.8 H (5-15) BUN 8 (7-18) mg/dL Creatinine 0.7 (0.55-1.02) mg/dL Est Cr Clr Drug Dosing 75.22 mL/min Estimated GFR (MDRD) > 60 (>60) mL/min BUN/Creatinine Ratio 11.4 L (14-18) Glucose 84 (80-115) mg/dL Calcium 7.9 L (8.5-10.1) mg/dL Magnesium 1.2 L (1.8-2.4) mg/dl Total Bilirubin 0.2 (0.2-1.0) mg/dL AST 31 (15-37) U/L ALT 33 (14-59) U/L Alkaline Phosphatase 161 H (46-116) U/L Total Protein 5.7 L (6.4-8.2) g/dl Albumin 2.4 L (3.4-5.0) g/dl Globulin 3.3 gm/dL Albumin/Globulin Ratio 0.7 L (1-2) Meds: Medications Generic Name Dose Route Start Last Admin Trade Name Michelle PRN Reason Stop Dose Admin Sodium Chloride 10 ml 07/09/20 16:37 07/09/20 17:29 Saline Flush FLUSH 10 ml ASDIRECTED PRN Administration Keep Vein Open Discontinued Medications Generic Name Dose Route Start Last Admin Trade Name Michelle PRN Reason Stop Dose Admin Magnesium Sulfate 4 gm/ Premix 50 mls @ 12.5 mls/hr 07/09/20 16:38 07/09/20 17:30 IV 07/09/20 20:37 12.5 mls/hr ONETIME ONE Administration Magnesium Oxide 400 mg 07/09/20 17:20 07/09/20 17:40 Magnesium Oxide PO 07/09/20 17:21 400 mg ONETIME ONE Administration - Re-Assessments/Exams Free Text/Narrative Re-Assessment/Exam: Patient is a 65-year-old female presenting to the emergency department at the request of her accountant budget. She had routine labs completed in our facility yesterday and was found to to be hypomagnesemic at 0.9. She states that she does have a history of hypomagnesemia but has never required IV infusions of magnesium. 1 month ago, she was discharged from the hospital in [place] after 35-day stay for bowel resection. She does have a history of A. fib but denies any palpitations or cardiac complaints over the last few days. She does have oral magnesium supplements at home which she has not started taking yet. I have ordered CBC, CMP, magnesium, EKG, peripheral IV insertion with 4 g of IV magnesium, as well as magnesium oxide 400 mg p.o. 07/09/20 20:51 Magnesium infusion is complete and patient is ready go home. I will discharge her with recommendations to follow-up with her accountant budget and have a repeat blood work on Tuesday to ensure her magnesium levels have returned to normal. Discussed return precautions. Discharge instructions as documented. Departure - Departure Time of Disposition: 20:44 Disposition: Home, Self-Care 01 Condition: Good Clinical Impression: Hypomagnesemia - Discharge Information *PRESCRIPTION DRUG MONITORING PROGRAM REVIEWED*: No *COPY OF PRESCRIPTION DRUG MONITORING REPORT IN PATIENT ANABELLA: No Instructions: Hypomagnesemia Referrals: Claudia Rouse NP [Primary Care Provider] - Bharti Choudhary NP [Ordering Only Provider] - Forms: ED Department Discharge Additional Instructions: You were seen in the emergency department this evening for evaluation with regards to low magnesium levels. Blood work was repeated in the emergency department and your magnesium was found to be 1.2. EKG was completed and there was no arrhythmias noted within your heart. While in the ER, you received 4 g of magnesium through IV as well as 400 mg of magnesium oxide. Recommend that you take the magnesium supplements that you have at home as previously prescribed. Contact your accountant budget to set up a repeat lab work, preferably on Tuesday of next week to ensure that your magnesium levels have returned to normal. If you experience any concerning symptoms, please not hesitate to return to the emergency department. Sepsis Event Note (ED) - Evaluation Sepsis Screening Result: No Definite Risk - Focused Exam Vital Signs: Vital Signs Temp Pulse Resp BP Pulse Ox 07/09/20 16:32 97.4 F 99 18 137/78 100 - My Orders Last 24 Hours: My Active Orders 07/09/20 16:37 EKG Documentation Completion [RC] ASDIRECTED Peripheral IV Care [RC] . DIRECTED Sodium Chloride 0.9% [Saline Flush] 10 ml FLUSH ASDIRECTED PRN Peripheral IV Insertion Adult [OM.PC] Stat EKG 12 Lead [EK] Stat - Assessment/Plan Last 24 Hours: My Active Orders 07/09/20 16:37 EKG Documentation Completion [RC] ASDIRECTED Peripheral IV Care [RC] . DIRECTED Sodium Chloride 0.9% [Saline Flush] 10 ml FLUSH ASDIRECTED PRN Peripheral IV Insertion Adult [OM.PC] Stat EKG 12 Lead [EK] Stat
[2020-07-09] MEDS: Sodium Chloride 0.9% 10 ML Syringe FLUSH PRN (17:29)
[2020-07-09] MEDS: Magnesium Sulfate/Water 4 GM in Premix Bag 1 BAG IV ONE (17:30)
[2020-07-09] MEDS: Magnesium Oxide 400 MG Tab PO ONE (17:40)
== END 2020-07-09 21:08 | disposition home or self-care (01) ==
LOC: JD.ED 15:51
DX: E83.42 Hypomagnesemia (principal); I10 Essential (primary) hypertension; E78.00 Pure hypercholesterolemia, unspecified; J43.9 Emphysema, unspecified; K21.9 Gastro-esophageal reflux disease without esophagitis; M10.9 Gout, unspecified; D50.9 Iron deficiency anemia, unspecified; Z87.891 Personal history of nicotine dependence; Z88.2 Allergy status to sulfonamides; Z88.8 Allergy status to other drugs, medicaments and biological substances; Z79.899 Other long term (current) drug therapy; Z79.01 Long term (current) use of anticoagulants; Z79.02 Long term (current) use of antithrombotics/antiplatelets
CPT/HCPCS: 36415; 80053; 83735; 85025; 93005; 96365; 96366; 99283; A9270; J3475; 93010

== ENCOUNTER 2024-07-25 16:33 | Emergency (ER) | payer MEDICARE, OTHER ==
[2024-07-25] MEDS: Albumin 25% 25 GM in Premix Bag 1 BAG IV ONE (17:34)
[2024-07-25] MEDS: Cyclobenzaprine 10 MG Tab PO ONE (17:46)
[2024-07-25] MEDS: traMADol 50 MG Tab PO ONE (17:46)
[2024-07-25] MEDS ORDERED: Albumin 25% 50 ML ONE (17:46)
[2024-07-25] MEDS: Sodium Chloride 0.9% 100 ML ONE (19:00)
[2024-07-25] MEDS: Furosemide 40 MG/4 ML VIAL IVPUSH ONE (21:14)
[2024-07-25] MEDS: Furosemide 40 MG/4 ML VIAL ONE (21:18)
[2024-07-25] MEDS: Potassium Chloride 10 MEQ in Premix Bag 1 BAG IV SCH (23:06)
[2024-07-25 23:32] LABS: INR 1.36; PROTHROMBIN TIME 14.1 SECONDS (9.7-12.0)
[2024-07-25 23:33] LABS: PTT,PARTIAL THROMBOPLSTIN TIME 30.7 SECONDS (21.7-31.4)
[2024-07-26] LABS: FOLIC ACID 18.3 ng/mL (8.6-58.9)
[2024-07-26] MEDS: Cyclobenzaprine 10 MG Tab PO ONE (02:55)
[2024-07-26] MEDS: traMADol 50 MG Tab PO ONE (02:56)
[2024-07-26 05:31] LABS: A/G RATIO 0.7 (1-2); ALBUMIN 1.8 g/dl (3.4-5.0); BILIRUBIN TOTAL 0.7 mg/dL (0.2-1.0); BUN/CREATININE RATIO 8.3 (14-18); CALCIUM 7.5 mg/dL (8.5-10.1); CREATININE 0.6 mg/dL (0.55-1.02); EST CRCL DRUG DOSING (CG) 95.09 mL/min; MAGNESIUM 1.3 mg/dL (1.8-2.4); PHOSPHORUS 3.3 mg/dL (2.6-4.7); PROTEIN TOTAL,TP 4.4 g/dl (6.4-8.2)
[2024-07-26 05:57] LABS: ANION GAP 10.8 (5-15); BASOPHILS PERCENT AUTO 0.4 % (0.0-1.0); EOSINOPHILS ABSOLUTE AUTO 0.1 K/mm3 (0.0-0.4); EOSINOPHILS PERCENT AUTO 0.7 % (0.0-6.0); HEMATOCRIT 27.3 % (37.0-47.0); IMMATURE GRAN ABSOLUTE AUTO 0.05 K/mm3 (0.00-0.05); IMMATURE GRAN PERCENT AUTO 0.6 % (0.0-0.4); LYMPHOCYTES ABSOLUTE AUTO 0.9 K/mm3 (1.0-4.8); LYMPHOCYTES PERCENT AUTO 10.9 % (24.0-44.0); MEAN CORPUSCULAR HEMOGLOBIN 30.2 pg (28.0-32.0); MEAN CORPUSCULAR HGB CONC 31.9 g/dl (32.0-36.0); MEAN PLATELET VOLUME 11.1 fl (9.4-12.3); MONOCYTES ABSOLUTE AUTO 1.5 K/mm3 (0.0-0.8); MONOCYTES PERCENT AUTO 17.6 % (0.0-8.0); NEUTROPHILS ABSOLUTE AUTO 5.9 K/mm3 (1.8-7.7); NEUTROPHILS PERCENT AUTO 69.8 % (41.0-71.0); PLATELET COUNT,PLT 169 K/mm3 (150-400); POTASSIUM,K 2.8 mEq/L (3.5-5.1); RED BLOOD CELL COUNT 2.88 M/mm3 (4.10-5.30); WHITE BLOOD CELL COUNT,WBC 8.46 K/mm3 (3.9-11.3)
[2024-07-26 06:15] LABS: HEMOGLOBIN 8.7 gm/dl (12.0-16.0); MEAN CORPUSCULAR VOLUME 94.8 fl (83.0-99.0)
[2024-07-26] MEDS: Potassium Chloride 20 MEQ Tab.ER PO ONE (06:28)
[2024-07-26] MEDS: Magnesium Sulf/Wat 4 GM/50 mL 4 GM in Premix Bag 1 BAG IV ONE (06:28)
[2024-07-26] MEDS ORDERED: Potassium Chloride 20 MEQ Tab.ER PO ONE (12:47)
[2024-07-26 13:41] LABS: HEMATOCRIT 29.7 % (37.0-47.0); HEMOGLOBIN 9.2 gm/dl (12.0-16.0)
[2024-07-26 14:24] VITALS: BP 129/56; PULSE 99
== END 2024-07-26 13:26 | disposition home or self-care (01) ==
LOC: JD.ED 16:33
DX: K92.2 Gastrointestinal hemorrhage, unspecified (principal); D64.89 Other specified anemias; E87.6 Hypokalemia; E83.42 Hypomagnesemia; E16.2 Hypoglycemia, unspecified; I10 Essential (primary) hypertension; E78.00 Pure hypercholesterolemia, unspecified; I47.10 Supraventricular tachycardia, unspecified; K21.9 Gastro-esophageal reflux disease without esophagitis; J44.9 Chronic obstructive pulmonary disease, unspecified; Z90.49 Acquired absence of other specified parts of digestive tract; Z87.891 Personal history of nicotine dependence; Z88.2 Allergy status to sulfonamides; Z88.8 Allergy status to other drugs, medicaments and biological substances; Z79.01 Long term (current) use of anticoagulants; Z79.84 Long term (current) use of oral hypoglycemic drugs; Z79.51 Long term (current) use of inhaled steroids; Z79.899 Other long term (current) drug therapy; R10.9 Unspecified abdominal pain; K55.1 Chronic vascular disorders of intestine; D64.9 Anemia, unspecified; I50.9 Heart failure, unspecified
CPT/HCPCS: 36415; 36430; 80053; 82607; 82728; 82746; 82947; 83540; 83735; 83880; 84100; 84466; 85014; 85018; 85025; 85027; 85610; 85730; 86850; 86900; 86901; 86922; 96365; 96366; 96367; 96375; 99214; 99284-25; 99285; A9270-GY; J1940; J3475; J3480; P9016; P9047